=== PATIENT | male | born 1930 | race Caucasian/White ===

== ENCOUNTER 2016-11-07 09:51 | Inpatient (IN) ==
[2016-11-07 10:31] LABS: Basophils % 0.4 %; Eosinophils # 0.1 K/mcL (0.0-0.6); Eosinophils % 2.1 %; Hematocrit 31.3 % (37.5-50.1); Hemoglobin 10.1 g/dL (12.9-16.9); Immature Granulocytes % 0.4 % (0-4); Lymphocytes # 1.1 K/mcL (0.6-4.6); Lymphocytes % 22.4 %; Mean Corpuscular HGB Conc 32.3 g/dL (31.6-35.5); Mean Corpuscular Hemoglobin 29.6 pg (28.0-33.3); Mean Corpuscular Volume 91.8 fL (83.0-100.0); Monocytes # 0.3 K/mcL (0.0-1.3); Monocytes % 6.6 %; Neutrophils # 3.3 K/mcL (1.6-8.9); Platelet Count 150 K/mcL (140-400); Red Blood Count 3.41 M/mcL (4.19-5.50); Red Cell Distribution Width 13.8 % (11.5-14.5); Segmented Neutrophils % 68.1 %
[2016-11-07 10:35] LABS: INR 1.3; Prothrombin Time 14.5 Seconds (9.4-12.1)
--- NOTE | 2016-11-07 10:36 | Emergency Department Note ---
Disposition Clinical Impression: GI bleed Qualifiers: GI bleed type/associated pathology: melena Qualified Code(s): K92.1 - Melena Syncope Qualifiers: Syncope type: unspecified Qualified Code(s): R55 - Syncope and collapse Disposition: Admitted As Inpatient Condition: Good Referrals: Isaias Welsh MD [Primary Care Provider] - Forms: ED Satisfaction Letter Time of Disposition: 12:09 General Adult HPI - General Chief complaint: ED Dizziness Stated complaint: Dizzines,Fall last week Time Seen by Provider: 11/07/16 10:01 Source: patient Limitations: no limitations Nursing Notes Reviewed: Yes Vital Signs Reviewed: Yes - History of Present Illness HPI Narrative: 86-year-old male presenting to the emergency department with chief complaint of presyncope 1 week. Patient states for the last week he has been feeling unwell and has been feeling dizzy when he stands up. This is new for the patient. He has not followed with primary care physician for this complaint. Patient has significant cardiac history of 6 stents placed with the last one being in 2008. He does currently follow with cardiology. Patient also on eliquis. Patient states he did fall once approximately 4-5 days ago but this was unwitnessed. He states he has not passed out and has not hit his head. Patient also states since yesterday he has had dark coal colored stools. This is new for him and has not happened before. Patient currently in no pain. He denies chest pain but does say he does have increased shortness of breath recently. Denies nausea or vomiting. Patient is alert and oriented 3 in the room Pain Scale: 0 - Related Data Home Medications Medication Instructions Recorded Confirmed Apixaban [Eliquis] 2.5 mg PO BID 11/07/16 11/07/16 Carvedilol 12.5 mg PO BID 11/07/16 11/07/16 Cyclosporine [Restasis] 1 drop OP DAILY 11/07/16 11/07/16 Dronedarone [Multaq] 400 mg PO BIDWM 11/07/16 11/07/16 Levothyroxine Sodium [Levoxyl] 75 mcg PO DAILY 11/07/16 11/07/16 Multivit-Min/FA/Lycopen/Lutein [A 1 tab PO DAILY 11/07/16 11/07/16 Thru Z Select Multivit Tab] Simvastatin [Zocor] 10 mg PO DAILY 11/07/16 11/07/16 Allergies Allergy/AdvReac Type Severity Reaction Status Date / Time clonidine Allergy See Verified 11/07/16 09:53 Comments Erythromycin Base Allergy See Verified 11/07/16 09:53 [From Erythrocin] Comments Iodinated Contrast- Oral and Allergy See Verified 11/07/16 09:53 IV Dye Comments [Iodinated Contrast Media - IV Dye] Neomycin Allergy See Verified 11/07/16 09:53 Comments povidone-iodine Allergy See Verified 11/07/16 09:53 [From Betadine] Comments Sulfa (Sulfonamide Allergy See Verified 11/07/16 09:53 Antibiotics) Comments sulfamethoxazole Allergy See Verified 11/07/16 09:53 [From Bactrim] Comments trimethoprim [From Bactrim] Allergy See Verified 11/07/16 09:53 Comments All systems ED: reviewed and negative except as stated. Constitutional: Reports: weakness. Denies: fever, chills Eyes: Reports: as per HPI ENT ED: Reports: as per HPI Cardiovascular: Denies: chest pain, palpitations, edema Respiratory: Reports: dyspnea. Denies: cough, wheezes, hemoptysis Gastrointestinal: Reports: melena. Denies: abdominal pain, nausea, vomiting Genitourinary: Reports: as per HPI Musculoskeletal: Reports: as per HPI Integumentary: Denies: rash, abrasion, lesions Neurological: Reports: weakness. Denies: headache, numbness, paresthesias Psychiatric: Reports: as per HPI Endocrine: Reports: fatigue Hematological/Lymphatic: Reports: as per HPI Allergic/Immunologic: Reports: as per HPI Past Medical History - Past Medical History Attestation: Yes The following information was validated with the patient. Medical history: Reports: atrial fibrillation, hyperlipidemia, hypertension Surgical history: Reports: carotid endarterectomy, cataract, coronary bypass ( CABG), herniorrhaphy, knee replacement Psychiatric history: Reports: no psych history - Social History Smoking Status: Never smoker Smokeless Tobacco Status: No Alcohol use: Reports: none Drug use: Reports: none Physical Exam - General Limitations: no limitations General appearance: alert, in no apparent distress - Head Head exam: atraumatic, normocephalic, normal inspection - Eye Eye exam: Present: normal appearance, PERRL, EOMI. Absent: scleral icterus, conjunctival injection - Neck Neck exam: Present: normal inspection, full ROM - Chest Chest inspection: Present: normal inspection, symmetric chest wall rise. Absent : tenderness, rash - Respiratory Respiratory exam: Present: normal lung sounds bilaterally. Absent: respiratory distress, wheezes - Cardiovascular Cardiovascular exam: Present: regular rate, normal rhythm, normal heart sounds - Abdominal Exam Abdominal exam: Present: soft, Non-Tender. 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 Absent: fecal impaction, hemorrhoids, mass - Extremities Exam Extremities exam: Present: normal inspection, full ROM - Neurological Exam Neurological exam: Present: alert, oriented X3 - Psychiatric Psychiatric exam: Present: normal affect, normal mood - Skin Skin exam: Present: warm, intact Course Course Narrative: 86-year-old male presenting to the emergency department with presyncope. Patient has strong cardiac history along with being on eliquis. Patient also states he has coal colored stools for the past 2 days. Patient also states he did fall earlier this week. We will obtain a CT of the head, basic lab work, EKG, perform a Hemoccult test. Disposition most likely admission at this time. - Reevaluation(s) Reevaluation #1: All lab work has come back within normal limits besides a hemoglobin which is acutely dropped since 10/26. Hemoccult completed was positive. At this time we will admit the patient for GI bleed. Patient alert and oriented in the room at this time with stable vital signs. Time: 11:34 Reevaluation #2: Decision to admit the patient. Hospitalist Dr. Spears who accepts the patient. Call out to endoscopy will also be performed at this time. Time: 12:06 Reevaluation #3: Spoke with Dr. Ibarra who agrees to follow the patient while in the hospital. Patient will now be admitted to the floor. Time: 12:09 Vital Signs Temperature 0 F L 11/07/16 09:53 Pulse Rate 66 11/07/16 09:53 Respiratory Rate 20 11/07/16 09:53 Blood Pressure 107/63 11/07/16 09:53 O2 Sat by Pulse Oximetry 97 11/07/16 09:53 Temperature 0 F L 11/07/16 09:53 Pulse Rate 60 11/07/16 11:58 Respiratory Rate 18 11/07/16 11:58 Blood Pressure 97/55 11/07/16 11:58 O2 Sat by Pulse Oximetry 97 11/07/16 11:58 Oxygen Delivery Oxygen Delivery Room Air Medical Decision Making - Medical Records Medical records reviewed: Yes I reviewed the patient's medical records. - Lab Data Lab results reviewed: Yes I reviewed the patient's lab results. Result diagrams: 11/07/16 10:24 11/07/16 10:24 Lab Results 11/07/16 11/07/16 11/07/16 Range/Units 10:24 10:24 10:24 WBC 4.8 (4.3-11.1) K/mcL RBC 3.41 L (4.19-5.50) M/mcL Hgb 10.1 L (12.9-16.9) g/dL Hct 31.3 L (37.5-50.1) % MCV 91.8 (83.0-100.0) fL MCH 29.6 (28.0-33.3) pg MCHC 32.3 (31.6-35.5) g/dL RDW 13.8 (11.5-14.5) % Plt Count 150 (140-400) K/mcL MPV 10.0 (9.4-12.4) fL Immature Gran % 0.4 (0-4) % Seg Neutrophils % 68.1 % Lymphocytes % 22.4 % Monocytes % 6.6 % Eosinophils % 2.1 % Basophils % 0.4 % Neutrophils # 3.3 (1.6-8.9) K/mcL Lymphocytes # 1.1 (0.6-4.6) K/mcL Monocytes # 0.3 (0.0-1.3) K/mcL Eosinophils # 0.1 (0.0-0.6) K/mcL Basophils # 0.0 (0.0-0.2) K/mcL PT (9.4-12.1) Seconds INR APTT (26.0-36.0) Seconds Sodium 135 L (136-145) mEq/L Potassium 4.2 (3.5-4.5) mEq/L Chloride 104 (98-109) mEq/L Carbon Dioxide 25 (19-29) mEq/L BUN 22 (8-26) mg/dL Creatinine 1.34 H (0.72-1.25) mg/dL Est GFR ( Amer) > 60 (> 60) Est GFR (Non-Af Amer) 51 L (> 60) BUN/Creatinine Ratio 16 (6-26) Glucose 113 H (70-99) mg/dL Calculated Osmolality 284 (280-300) Calcium 8.9 (8.6-10.8) mg/dL Total Bilirubin 0.9 (0.2-1.2) mg/dL AST 15 (5-34) Units/L ALT 16 (0-55) Units/L Alkaline Phosphatase 63 (38-126) Units/L Troponin I 0.00 (0-0.03) ng/mL Serum Total Protein 6.3 (6.0-8.3) g/dL Albumin 3.3 L (3.5-5.0) g/dL Globulin 3.0 (2.4-3.5) g/dL Albumin/Globulin Ratio 1.1 (1.1-2.2) Urine Color (Yellow) Urine Clarity (Clear) Urine pH (5.0-8.0) pH Units Ur Specific [place] (1.010-1.025) Urine Protein (Neg-Trace) mg/dL Urine Glucose (UA) (Normal) mg/dL Urine Ketones (Negative) mg/dL Urine Blood (Negative) Urine Nitrite (Negative) Urine Bilirubin (Negative) Urine Urobilinogen (Normal) mg/dL Ur Leukocyte Esterase (Negative) Ur Culture Indicated? (NO) 11/07/16 11/07/16 Range/Units 10:24 11:16 WBC (4.3-11.1) K/mcL RBC (4.19-5.50) M/mcL Hgb (12.9-16.9) g/dL Hct (37.5-50.1) % MCV (83.0-100.0) fL MCH (28.0-33.3) pg MCHC (31.6-35.5) g/dL RDW (11.5-14.5) % Plt Count (140-400) K/mcL MPV (9.4-12.4) fL Immature Gran % (0-4) % Seg Neutrophils % % Lymphocytes % % Monocytes % % Eosinophils % % Basophils % % Neutrophils # (1.6-8.9) K/mcL Lymphocytes # (0.6-4.6) K/mcL Monocytes # (0.0-1.3) K/mcL Eosinophils # (0.0-0.6) K/mcL Basophils # (0.0-0.2) K/mcL PT 14.5 H (9.4-12.1) Seconds INR 1.3 APTT 37.8 H (26.0-36.0) Seconds Sodium (136-145) mEq/L Potassium (3.5-4.5) mEq/L Chloride (98-109) mEq/L Carbon Dioxide (19-29) mEq/L BUN (8-26) mg/dL Creatinine (0.72-1.25) mg/dL Est GFR ( Amer) (> 60) Est GFR (Non-Af Amer) (> 60) BUN/Creatinine Ratio (6-26) Glucose (70-99) mg/dL Calculated Osmolality (280-300) Calcium (8.6-10.8) mg/dL Total Bilirubin (0.2-1.2) mg/dL AST (5-34) Units/L ALT (0-55) Units/L Alkaline Phosphatase (38-126) Units/L Troponin I (0-0.03) ng/mL Serum Total Protein (6.0-8.3) g/dL Albumin (3.5-5.0) g/dL Globulin (2.4-3.5) g/dL Albumin/Globulin Ratio (1.1-2.2) Urine Color Yellow (Yellow) Urine Clarity Clear (Clear) Urine pH 6.5 (5.0-8.0) pH Units Ur Specific [place] 1.014 (1.010-1.025) Urine Protein Negative (Neg-Trace) mg/dL Urine Glucose (UA) Normal (Normal) mg/dL Urine Ketones Negative (Negative) mg/dL Urine Blood Negative (Negative) Urine Nitrite Negative (Negative) Urine Bilirubin Negative (Negative) Urine Urobilinogen Normal (Normal) mg/dL Ur Leukocyte Esterase Negative (Negative) Ur Culture Indicated? NO (NO) - Radiology Data Radiology results reviewed: Yes I reviewed the patient's radiology results. - EKG Data EKG #1 EKG attestation: Yes I reviewed and interpreted this EKG. EKG results narrative: EKG is ventricularly paced. 60 bpm. NH interval 72, QRS 190, QTC 492. No significant signs of ischemia.
[2016-11-07 10:38] LABS: Activated Partial Thrombo Time 37.8 Seconds (26.0-36.0)
[2016-11-07 10:43] LABS: Alanine Aminotransferase 16 Units/L (0-55); Albumin 3.3 g/dL (3.5-5.0); Albumin/Globulin Ratio 1.1 (1.1-2.2); Alkaline Phosphatase 63 Units/L (38-126); Aspartate Amino Transferase 15 Units/L (5-34); BUN/Creatinine Ratio 16 (6-26); Bilirubin,Total 0.9 mg/dL (0.2-1.2); Blood Urea Nitrogen 22 mg/dL (8-26); Calcium 8.9 mg/dL (8.6-10.8); Carbon Dioxide 25 mEq/L (19-29); Chloride 104 mEq/L (98-109); Glucose 113 mg/dL (70-99); Osmolality,Calculated 284 (280-300); Potassium 4.2 mEq/L (3.5-4.5); Sodium 135 mEq/L (136-145); Total Protein 6.3 g/dL (6.0-8.3); eGFR For African Americans > 60 (> 60); eGFR For Non-African Americans 51 (> 60)
[2016-11-07 11:22] LABS: Bilirubin,Urine Negative (Negative); Blood,Urine Negative (Negative); Clarity,Urine Clear (Clear); Color,Urine Yellow (Yellow); Glucose,Urine (UA) Normal (Normal); Ketones,Urine Negative (Negative); Leukocyte Esterase,Urine Negative (Negative); Nitrite,Urine Negative (Negative); PH,Urine 6.5 pH Units (5.0-8.0); Protein,Urine Negative (Neg-Trace); Specific Gravity,Urine 1.014 (1.010-1.025); Urobilinogen,Urine Normal (Normal)
[2016-11-07] MEDS ORDERED: Pantoprazole 80 MG in 0.9 % Sodium Chloride 50 ML IVPB ONE (11:44)
--- NOTE | 2016-11-07 11:44 | Emergency Department Note ---
START Narrative - START START: I examined this patient and my medical decision-making was reviewed with the Resident Physician. I agree with the documented findings, disposition and treatment plan as described except to the extent set forth below. 86-year-old male had presented to the ER for dizziness. Patient was found to be anemic with a most likely upper GI bleed. Hemoglobin was down to 10. Was a positive Hemoccult test in the ER. Patient denies abdominal pain. He is on Eloquis. will need to consult with GI and Cards. he states he has a colonoscopy around age 52 and states it was normal. Has not had any intervention since. He states his stools are been dark in color. Denies any bright red blood at this time. No abdominal pain. No chest pain or shortness of breath.
[2016-11-07] MEDS: Pantoprazole 40 MG in 0.9 % Sodium Chloride Mini Bag 100 ML IVC SCH ×3 (12:11→23:12)
[2016-11-07] MEDS: 0.9 % Sodium Chloride 1,000 ML IVC SCH (12:11)
[2016-11-07] MEDS ORDERED: Ondansetron 4 MG/2 ML VIAL IVP PRN (12:21)
[2016-11-07] MEDS ORDERED: Acetaminophen 325 MG TABLET PO PRN (12:21)
[2016-11-07] MEDS ORDERED: *HR* Morphine 2 MG/ML SYRINGE IVP PRN (12:21)
[2016-11-07] MEDS ORDERED: Naloxone 0.4 MG/ML INJ IVP PRN (12:21)
--- NOTE | 2016-11-07 12:26 | Internal Med History&Physical ---
Date of Encounter: 11/07/16 Time of Encounter: 12:24 Assessment and Plan (1) Anemia Current visit: Yes Status: Acute Near syncope due to Acute blood loss anemia/symptomatic anemia likely secondary to upper GI bleed, exacerbated by Eliquis Denies taking any other blood thinner such as NSAIDs Continue Protonix IV, monitor CBC and consider transfusions, hold Eliquis GI consulted by the ER IV fluids, nothing by mouth after midnight Protonix for GI prophylaxis and sequential compression devices for DVT prophylaxis. The patient will be admitted as inpatient, expected to stay more than 2 midnights. Full code. Time spent on this admission 40 minutes High risk of falling Qualifiers: Iron deficiency anemia type: chronic blood loss Qualified Code(s): D50.0 - Iron deficiency anemia secondary to blood loss (chronic) (2) CAD (coronary artery disease) Current visit: Yes Status: Acute , Continue multaq Continue carvedilol Obtain records from Dr. Gutierrez to confirm whether the patient has atrial fibrillation Qualifiers: Coronary Disease-Associated Artery/Lesion type: bypass graft, autologous artery Associated angina: without angina Qualified Code(s): I25.810 - Atherosclerosis of coronary artery bypass graft(s) without angina pectoris (3) CKD (chronic kidney disease) stage 3, GFR 30-59 ml/min Current visit: Yes Status: Acute Stable, continue IV fluids (4) HTN (hypertension) Current visit: Yes Status: Acute Stable Qualifiers: Hypertension type: essential hypertension Qualified Code(s): I10 - Essential (primary) hypertension (5) Prostate cancer Current visit: Yes Status: Acute (6) GI bleed Current visit: Yes Status: Acute Qualifiers: GI bleed type/associated pathology: melena Qualified Code(s): K92.1 - Melena Internal Medicine - H&P: HPI Chief complaint: Weakness Admitted From: Emergency Dept History of present illness: Mr. Carbajal is a 86 year old male with a past medical history of CAD status post CABG, pacemaker, chronic kidney disease is stage III, possibly atrial fibrillation currently on Eliquis, who comes complaining of severe weakness for the past week with near syncopal episodes inconstant dizziness especially when standing up. His hemoglobin has dropped from 12.9 down to 10.9, INR is 1.3. The patient has been complaining of dark stools for the past 2 days sodium is 135 creatinine is 1.34 at baseline. Hemoccult was positive. He felt 5 days ago but did not heed his head, CT scan of the head does not show any intracranial hemorrhage. Chest x-ray does not show any abnormalities. The ER physician contacted the GI service and started the patient on a Protonix drip. He denies any chest pain or other complaint. 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 [employer] Past Med Surg Social Fam HX - Past Medical History Medical history: atrial fibrillation (Possibly atrial fibrillation on eliquis), coronary artery disease (Status post 6 stents and CABG), hyperlipidemia, hypertension, other (Chronic kidney disease stage III, UTI with a Staphylococcus and enterococcus, hyperlipidemia, prostate cancer) Psychiatric history: no psych history - Past Surgical History Surgical History: carotid endarterectomy, cataract, coronary bypass (CABG), herniorrhaphy, knee replacement, pacemaker/AICD, other (Cardiac catheterization the last one in 2008, prostate surgery, right eye surgery) - Social History Smoking Status: Never smoker Smokeless Tobacco Status: No Alcohol use: none Drug use: none - Additional Family History Additional family history: Mother with heart disease Internal Medicine - H&P: Meds Apixaban [Eliquis] 2.5 mg PO BID 11/07/16 [History] Carvedilol 12.5 mg PO BID 11/07/16 [History] Cyclosporine [Restasis] 1 drop OP DAILY 11/07/16 [History] Dronedarone [Multaq] 400 mg PO BIDWM 11/07/16 [History] Levothyroxine Sodium [Levoxyl] 75 mcg PO DAILY 11/07/16 [History] Multivit-Min/FA/Lycopen/Lutein [A Thru Z Select Multivit Tab] 1 tab PO DAILY 03/25 [History] Simvastatin [Zocor] 10 mg PO DAILY 11/07/16 [History] 3 Allergy/AdvReac Type Severity Reaction Status Date / Time clonidine Allergy See Verified 11/07/16 09:53 Comments Erythromycin Base Allergy See Verified 11/07/16 09:53 [From Erythrocin] Comments Iodinated Contrast- Oral and Allergy See Verified 11/07/16 09:53 IV Dye Comments [Iodinated Contrast Media - IV Dye] Neomycin Allergy See Verified 11/07/16 09:53 Comments povidone-iodine Allergy See Verified 11/07/16 09:53 [From Betadine] Comments Sulfa (Sulfonamide Allergy See Verified 11/07/16 09:53 Antibiotics) Comments sulfamethoxazole Allergy See Verified 11/07/16 09:53 [From Bactrim] Comments trimethoprim [From Bactrim] Allergy See Verified 11/07/16 09:53 Comments All Systems PM: A 10-system review of systems was performed and is negative for pertinent findings except as documented above in the HPI. Review of systems: Mentions of breath, no abdominal pain, no dysuria. Other systems out of the 10 reviewed were negative. Complains of generalized weakness - Constitutional Vitals: Temp Pulse Resp BP Pulse Ox 0 F L 60 18 97/55 97 11/07/16 09:53 11/07/16 11:58 11/07/16 11:58 11/07/16 11:58 11/07/16 11:58 General appearance: Present: A&O X 3 (Hard of hearing) - Head Head exam: Present: atraumatic, normocephalic - Eye Eye exam: Present: PERRL, conjuntiva pink, sclera anicteric Pupils: Present: PERRL - Neck Neck exam general surgery: Present: supple, trachea midline. Absent: lymphadenopathy - Respiratory Respiratory exam: Present: CTAB. Absent: accessory muscle use, rales, rhonchi, wheezes - Cardiovascular Cardiovascular exam: Present: RRR, +S1, +S2. Absent: diastolic murmur, gallop, rubs, systolic murmur - GI/Abdominal GI/Abdominal exam: Present: normal bowel sounds, soft, no peritoneal signs. Absent: distended, tenderness - Extremities Exam Extremities exam: Present: warm, radial pulses palpable and symmetrical. Absent : calf tenderness, cyanotic, pedal edema - Neurological Exam Neurological exam: Present: CN II-XII intact, oriented X3, no focal deficits. Absent: pronater drift, facial droop, speech deficit - Skin Skin exam: Present: dry, intact Internal Med - H&P Results - Labs CBC & Chem 7: 11/07/16 10:24 11/07/16 10:24 Labs: Short CBC 11/07/16 Range/Units 10:24 WBC 4.8 (4.3-11.1) K/mcL Hgb 10.1 L (12.9-16.9) g/dL Hct 31.3 L (37.5-50.1) % Plt Count 150 (140-400) K/mcL Neutrophils # 3.3 (1.6-8.9) K/mcL BMP 11/07/16 10:24 Sodium 135 L Potassium 4.2 Chloride 104 Carbon Dioxide 25 BUN 22 Creatinine 1.34 H Glucose 113 H Calcium 8.9 Cardiac Enzymes 11/07/16 Range/Units 10:24 Troponin I 0.00 (0-0.03) ng/mL Liver Function 11/07/16 Range/Units 10:24 Total Bilirubin 0.9 (0.2-1.2) mg/dL AST 15 (5-34) Units/L ALT 16 (0-55) Units/L Alkaline Phosphatase 63 (38-126) Units/L Albumin 3.3 L (3.5-5.0) g/dL Urine 11/07/16 Range/Units 11:16 Urine Color Yellow (Yellow) Urine Clarity Clear (Clear) Urine pH 6.5 (5.0-8.0) pH Units Ur Specific [place] 1.014 (1.010-1.025) Urine Protein Negative (Neg-Trace) mg/dL Urine Glucose (UA) Normal (Normal) mg/dL - Impressions ITS Impressions Head CT 11/07/16 10:19 IMPRESSION: No acute intracranial abnormality. D/ / Renae Ngo MD / Renae Ngo MD Interpreting Provider: Renae Ngo MD Chest X-Ray 11/07/16 10:20 IMPRESSION: 1. No active pulmonary disease. 2. Stable cardiomegaly without overt failure. D/ / Aftab Gamez MD / Aftab Gamez MD Interpreting Provider: Aftab Gamez MD
--- NOTE | 2016-11-07 17:42 | Electrocardiograph Report ---
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
[2016-11-07 21:31] LABS: Hematocrit 30.7 % (37.5-50.1); Mean Corpuscular HGB Conc 32.6 g/dL (31.6-35.5); Mean Corpuscular Hemoglobin 29.9 pg (28.0-33.3); Mean Corpuscular Volume 91.9 fL (83.0-100.0); Mean Platelet Volume 10.2 fL (9.4-12.4); Platelet Count 158 K/mcL (140-400); Red Blood Count 3.34 M/mcL (4.19-5.50)
[2016-11-08] MEDS: Pantoprazole 40 MG in 0.9 % Sodium Chloride Mini Bag 100 ML IVC SCH ×2 (00:19→08:24)
[2016-11-08] MEDS: 0.9 % Sodium Chloride 1,000 ML IVC SCH (03:00)
[2016-11-08 04:59] LABS: Hemoglobin 9.4 g/dL (12.9-16.9); Mean Corpuscular HGB Conc 32.4 g/dL (31.6-35.5); Mean Corpuscular Hemoglobin 29.9 pg (28.0-33.3); Mean Corpuscular Volume 92.4 fL (83.0-100.0); Mean Platelet Volume 10.9 fL (9.4-12.4); Platelet Count 148 K/mcL (140-400); Red Blood Count 3.14 M/mcL (4.19-5.50)
[2016-11-08 05:18] LABS: BUN/Creatinine Ratio 14 (6-26); Blood Urea Nitrogen 17 mg/dL (8-26); Calcium 8.6 mg/dL (8.6-10.8); Carbon Dioxide 24 mEq/L (19-29); Chloride 109 mEq/L (98-109); Glucose 94 mg/dL (70-99); Osmolality,Calculated 289 (280-300); Potassium 4.3 mEq/L (3.5-4.5); Sodium 139 mEq/L (136-145); eGFR For African Americans > 60 (> 60); eGFR For Non-African Americans 55 (> 60)
--- NOTE | 2016-11-08 08:20 | Internal Med Progress Note ---
Date of Encounter: 11/08/16 Time of Encounter: 08:18 - Assessment and plan (1) Anemia Current Visit: Yes Status: Acute Assessment and plan: Near syncope due to Acute blood loss anemia/symptomatic anemia likely secondary to upper GI bleed, exacerbated by Eliquis Denies taking any other blood thinner such as NSAIDs Continue Protonix IV, monitor CBC and consider transfusions, hold Eliquis GI consulted IV fluids, nothing by mouth for possible endoscopy Qualifiers: Iron deficiency anemia type: chronic blood loss Qualified Code(s): D50.0 - Iron deficiency anemia secondary to blood loss (chronic) (2) CAD (coronary artery disease) Current Visit: Yes Status: Acute Assessment and plan: Continue multaq Continue carvedilol RN instructed to obtain records from Dr. 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 [employer] Qualifiers: Coronary Disease-Associated Artery/Lesion type: bypass graft, autologous artery Associated angina: without angina Qualified Code(s): I25.810 - Atherosclerosis of coronary artery bypass graft(s) without angina pectoris (3) CKD (chronic kidney disease) stage 3, GFR 30-59 ml/min Current Visit: Yes Status: Acute Assessment and plan: Stable, continue fluids (4) HTN (hypertension) Current Visit: Yes Status: Acute Qualifiers: Hypertension type: essential hypertension Qualified Code(s): I10 - Essential (primary) hypertension (5) Prostate cancer Current Visit: Yes Status: Acute (6) GI bleed Current Visit: Yes Status: Acute Qualifiers: GI bleed type/associated pathology: melena Qualified Code(s): K92.1 - Melena - Subjective Interval history: Denies any more bowel movements since yesterday, no dark stools. Denies any chest pressures or breath, no abdominal pain, no dysuria, no fevers - Constitutional Vitals: Temp Pulse Resp BP Pulse Ox 97.8 F 66 16 164/73 99 11/08/16 07:08 11/08/16 07:08 11/08/16 07:08 11/08/16 07:08 11/08/16 07:08 General appearance: Present: A&O X 3 (Hard of hearing) - Head Head exam: Present: atraumatic, normocephalic - Eye Eye exam: Present: PERRL, conjuntiva pink, sclera anicteric Pupils: Present: PERRL - Neck Neck exam general surgery: Present: supple, trachea midline. Absent: lymphadenopathy - Respiratory Respiratory exam: Present: CTAB. Absent: accessory muscle use, rales, rhonchi, wheezes - Cardiovascular Cardiovascular exam: Present: RRR, +S1, +S2. Absent: diastolic murmur, gallop, rubs, systolic murmur - GI/Abdominal GI/Abdominal exam: Present: normal bowel sounds, soft, no peritoneal signs. Absent: distended, tenderness - Extremities Exam Extremities exam: Present: warm, radial pulses palpable and symmetrical. Absent : calf tenderness, cyanotic, pedal edema - Neurological Exam Neurological exam: Present: CN II-XII intact, oriented X3, no focal deficits. Absent: pronater drift, facial droop, speech deficit - Skin Skin exam: Present: dry, intact Internal Medicine: Result - Labs CBC & Chem 7: 11/08/16 04:30 11/08/16 04:30 Labs: Short CBC 11/07/16 11/08/16 Range/Units 21:24 04:30 WBC 5.0 4.4 (4.3-11.1) K/mcL Hgb 10.0 L 9.4 L (12.9-16.9) g/dL Hct 30.7 L 29.0 L (37.5-50.1) % Plt Count 158 148 (140-400) K/mcL BMP 11/08/16 04:30 Sodium 139 Potassium 4.3 Chloride 109 Carbon Dioxide 24 BUN 17 Creatinine 1.25 Glucose 94 Calcium 8.6 - ABG Interpretation ABG results: PT/INR, D-dimer PT 14.5 Seconds (9.4-12.1) H 11/07/16 10:24 Consult Discharge Plan - Plan Referrals: Isaias Welsh MD [Primary Care Provider] -
[2016-11-08] MEDS ORDERED: *HR* FentaNYL (PF) 100 MCG/2 ML VIAL ONE (11:43)
[2016-11-08] MEDS ORDERED: *HR* Midazolam HCl 5 MG/5 ML VIAL IVP ONE (11:43)
--- NOTE | 2016-11-08 12:18 | Gastroenterology Consult Note ---
<Dianne Agosto - Last Filed: 11/08/16 12:06> Date of Encounter: 11/08/16 Time of Encounter: 11:00 - Assessment and plan (1) Acute upper GI bleed Current Visit: Yes Status: Acute Assessment and plan: Pt presents after fall at home. He has dark stools and decreasing HGB from 12.9 to 9.4. He is on eliquis. He has a pacemaker. He needs EGD. - Time Spent With Patient Total time spent is greater than 50% in coordination of care (as documented) at patient's floor/unit and/or counseling patient: GI History of Present Illness - Data of Consult Patient: new to practice Consult date: 11/08/16 Requesting Physician: Tunde Lopez - Consult Narrative Reason for consult: GI bleed History of present illness: Mr. Carbajal is a 86 year old male who presents following a fall at home. He has a pmhx of CAD, HTN, prostated CA, CKD. He has Past surgical history of CABG in 1987, hernia repair, and pacemaker 02/21. CT head was negative and CXR showed stable cardiomegaly without failure. Labs showed Hgb 12.9 and has decreased to 9.4. Inr 1.3, Gluc 94, ALB 3.3, AST 15, ALT 16 platelets 148. He reports feeling weak and dizzy for the past month. He has had increased fatigue and orthostatic hypotension. He reports an episode of black tarry stool yesterday with some dark red stool. He denies dysphagia, abdominal pain or diarrhea. He reports occasional constipation. He is on eliquis and multaq at home, and followed by Dr Gutierrez at [facility]. He denies any smoking, drugs or ETOH. Colonoscopy: ~10 years ago ([facility]) EGD: denies NSAIDS: denies ASA: denies Anticougulants: eliquis Past Med Surg Social Fam HX - Past Medical History Medical history: atrial fibrillation, coronary artery disease, hyperlipidemia, hypertension, other Psychiatric history: no psych history - Past Surgical History Surgical History: carotid endarterectomy, cataract, coronary bypass (CABG), herniorrhaphy, knee replacement, pacemaker/AICD, other - Social History Smoking Status: Never smoker Smokeless Tobacco Status: No Alcohol use: none Drug use: none - Family History Mother Living Status: Age at : 83 Cause of : Heart disease Hx Family Cardiac Disorders: Yes (Heart disease) Review of Systems: GI: as per [place] GENERAL: denies fever, or chills EYES: denies yellow discoloration ENT: denies pain with swallowing or difficulty swallowing CARDIO: denies chest pain, palpitations RESP: mild Shortness of breath with exertion : denies change in color of urine NEURO: increased dizziness any weakness HEME: Denies any bruising MS: denies joint pain, joint swelling or back pain. DERM: denies rash or itching PSYCH: Denies history of anxiety or depression - Constitutional Vitals: Temp Pulse Resp BP Pulse Ox 98 F 59 16 184/90 98 11/08/16 11:57 11/08/16 11:57 11/08/16 11:57 11/08/16 11:57 11/08/16 11:57 Exam: CONSTITUTIONAL:~alert, no acute distress.~HEAD:~normocephalic.~EYES:~no jaundice.~NECK:~no obvious swelling.~HEART:~regular rate and rhythm, no murmurs , implanted pacemaker noted left upper chest.~LUNGS:~bilateral good air entry.~ ABDOMEN:~non distended, soft, non tander, no masses pulpable, no organomegaly.~ RECTAL EXAM:~Deferred.~EXTREMITIES:~no clubbing, cyanosis or edema.~SKIN:~mild pallor noted, no stigmata of chronic liver disease.~NEUROLOGIC:~no obvious focal defect.~~~~ Results - Labs CBC & Chem 7: 11/08/16 04:30 11/08/16 04:30 Labs: Last Result Calcium 8.6 mg/dL (8.6-10.8) 11/08/16 04:30 Troponin I 0.00 ng/mL (0-0.03) 11/07/16 10:24 Entire Visit Hgb 9.4 g/dL (12.9-16.9) L 11/08/16 04:30 Hct 29.0 % (37.5-50.1) L 11/08/16 04:30 PT 14.5 Seconds (9.4-12.1) H 11/07/16 10:24 Total Bilirubin 0.9 mg/dL (0.2-1.2) 11/07/16 10:24 AST 15 Units/L (5-34) 11/07/16 10:24 ALT 16 Units/L (0-55) 11/07/16 10:24 - ABG ABG results: PT/INR, D-dimer PT 14.5 Seconds (9.4-12.1) H 11/07/16 10:24 Consult Discharge Plan - Plan Instructions: Omeprazole (By mouth) Referrals: Isaias Welsh MD [Primary Care Provider] - 11/21/16 2:30 pm <Dilma Ibarra - Last Filed: 11/08/16 17:56> Date of Encounter: 11/08/16 Time of Encounter: 12:30 - Time Spent With Patient Total time spent is greater than 50% in coordination of care (as documented) at patient's floor/unit and/or counseling patient: GI History of Present Illness - Data of Consult Requesting Physician: Tunde Lopez - Consult Narrative History of present illness: Mr. Carbajal is a 86 year old male - Constitutional Vitals: Temp Pulse Resp BP Pulse Ox 97.8 F 66 18 148/70 98 11/08/16 15:54 11/08/16 15:54 11/08/16 15:54 11/08/16 15:54 11/08/16 15:54 Results - Labs CBC & Chem 7: 11/08/16 04:30 11/08/16 04:30 Labs: Last Result Calcium 8.6 mg/dL (8.6-10.8) 11/08/16 04:30 Troponin I 0.00 ng/mL (0-0.03) 11/07/16 10:24 Entire Visit Hgb 9.4 g/dL (12.9-16.9) L 11/08/16 04:30 Hct 29.0 % (37.5-50.1) L 11/08/16 04:30 PT 14.5 Seconds (9.4-12.1) H 11/07/16 10:24 Total Bilirubin 0.9 mg/dL (0.2-1.2) 11/07/16 10:24 AST 15 Units/L (5-34) 11/07/16 10:24 ALT 16 Units/L (0-55) 11/07/16 10:24 - ABG ABG results: PT/INR, D-dimer PT 14.5 Seconds (9.4-12.1) H 11/07/16 10:24 - Attending Attestation I examined this patient and my medical decision-making was reviewed with the Resident Physician. I agree with the documented findings, disposition and treatment plan as described except to the extent set forth below. Patient with anemia and dark stool rule out upper GI sources for bleeding. Recommendation EGD today. Follow H&H.
[2016-11-09 05:40] LABS: Hemoglobin 9.8 g/dL (12.9-16.9); Mean Corpuscular HGB Conc 32.7 g/dL (31.6-35.5); Mean Corpuscular Hemoglobin 30.2 pg (28.0-33.3); Mean Corpuscular Volume 92.6 fL (83.0-100.0); Mean Platelet Volume 10.5 fL (9.4-12.4); Platelet Count 145 K/mcL (140-400); Red Blood Count 3.24 M/mcL (4.19-5.50)
[2016-11-09 05:51] LABS: BUN/Creatinine Ratio 15 (6-26); Blood Urea Nitrogen 18 mg/dL (8-26); Calcium 8.7 mg/dL (8.6-10.8); Carbon Dioxide 24 mEq/L (19-29); Chloride 107 mEq/L (98-109); Glucose 95 mg/dL (70-99); Osmolality,Calculated 288 (280-300); Potassium 4.3 mEq/L (3.5-4.5); Sodium 138 mEq/L (136-145); eGFR For African Americans > 60 (> 60); eGFR For Non-African Americans 56 (> 60)
[2016-11-09] MEDS: 0.9 % Sodium Chloride 1,000 ML IVC SCH (07:08)
[2016-11-09] MEDS: Pantoprazole 40 MG in 0.9 % Sodium Chloride Mini Bag 100 ML IVC SCH (07:08)
--- NOTE | 2016-11-09 07:37 | Discharge Summary ---
Date of Encounter: 11/09/16 Time of Encounter: 07:34 - Discharge Diagnosis (1) Anemia Priority: Primary Status: Acute Comments: Near syncope due to Acute blood loss anemia/symptomatic anemia likely secondary to upper GI bleed, exacerbated by Eliquis Qualifiers: Iron deficiency anemia type: chronic blood loss Qualified Code(s): D50.0 - Iron deficiency anemia secondary to blood loss (chronic) (2) CAD (coronary artery disease) Priority: Secondary Status: Acute Qualifiers: Coronary Disease-Associated Artery/Lesion type: bypass graft, autologous artery Associated angina: without angina Qualified Code(s): I25.810 - Atherosclerosis of coronary artery bypass graft(s) without angina pectoris (3) CKD (chronic kidney disease) stage 3, GFR 30-59 ml/min Priority: Secondary Status: Acute (4) HTN (hypertension) Priority: Secondary Status: Acute Qualifiers: Hypertension type: essential hypertension Qualified Code(s): I10 - Essential (primary) hypertension (5) Prostate cancer Priority: Secondary Status: Acute (6) GI bleed Priority: Primary Status: Acute Qualifiers: GI bleed type/associated pathology: melena Qualified Code(s): K92.1 - Melena - Discharge Medications Prescriptions: Omeprazole [PriLOSEC] 40 mg PO BIDAC #60 capsule.dr Garcia Medications: Carvedilol 12.5 mg PO BID 11/07/16 [History] Cyclosporine [Restasis] 1 drop OP DAILY 11/07/16 [History] Dronedarone [Multaq] 400 mg PO BIDWM 11/07/16 [History] Levothyroxine Sodium [Levoxyl] 75 mcg PO DAILY 11/07/16 [History] Multivit-Min/FA/Lycopen/Lutein [A Thru Z Select Multivit Tab] 1 tab PO DAILY 03/25 [History] Simvastatin [Zocor] 10 mg PO DAILY 11/07/16 [History] Omeprazole [PriLOSEC] 40 mg PO BIDAC #60 capsule. 11/09/16 [Rx] Allergies/Adverse Reactions: 3 Allergy/AdvReac Type Severity Reaction Status Date / Time clonidine Allergy See Verified 11/07/16 09:53 Comments Erythromycin Base Allergy See Verified 11/07/16 09:53 [From Erythrocin] Comments Iodinated Contrast- Oral and Allergy See Verified 11/07/16 09:53 IV Dye Comments [Iodinated Contrast Media - IV Dye] Neomycin Allergy See Verified 11/07/16 09:53 Comments povidone-iodine Allergy See Verified 11/07/16 09:53 [From Betadine] Comments Sulfa (Sulfonamide Allergy See Verified 11/07/16 09:53 Antibiotics) Comments sulfamethoxazole Allergy See Verified 11/07/16 09:53 [From Bactrim] Comments trimethoprim [From Bactrim] Allergy See Verified 11/07/16 09:53 Comments Date of admission: 11/07/16 12:38 Primary care physician: Isaias Welsh MD - Patient Status Disposition: Home, Self-Care Condition: Good Overall status at discharge: patient is back to baseline - Discharge Instructions Instructions: Omeprazole (By mouth) Follow Up With: Isaias Welsh MD [Primary Care Provider] - 11/21/16 2:30 pm Additional Instructions: Follow-up with her Medicare physician within the next 7 days. Follow-up with cardiology within the next 2-3 weeks. Hold Eliquis until appointment with cardiology. Continue omeprazole 40 mg twice a day. Avoid anti-inflammatory medications/NSAIDs. Follow report of biopsy with GI within the next 2 weeks - Diet and Activity Activity: increase activity as tolerated Diet: low fat, low cholesterol Hospital course: Mr. Carbajal is a 86 year old male with a past medical history of aortic stenosis, systolic CHF with an ejection fraction between 30-35%, apparently the patient has a pacemaker and not a defibrillator, uses Multaq and Eliquis for atrial fibrillation, history of ischemic cardiomyopathy, peripheral vascular disease, mitral regurgitation, tricuspid regurgitation, nonsustained SVT, atrial fibrillation on eliquis, coronary artery disease (Status post 6 stents and CABG), hyperlipidemia, hypertension, other (Chronic kidney disease stage III , UTI with a Staphylococcus and enterococcus, hyperlipidemia, prostate cancer, who came complaining of severe weakness for the past week with near syncopal episodes with constant dizziness especially when standing up. His hemoglobin dropped from 12.9 down to 10.9 and down to 9.8 during his hospitalization, INR was 1.3. The patient was complaining of dark stools for the past 2 days. Hemoccult was positive. He fell 5 days ago but did not heed his head, CT scan of the head does not show any intracranial hemorrhage. Chest x-ray does not show any abnormalities. The ER physician contacted the GI service and started the patient on a Protonix drip. The patient had an endoscopy that showed a medium-sized hiatal hernia, and one nonbleeding duodenal ulcer. The patient was switched to omeprazole twice a day , Eliquis was held. 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 - Time Spent with Patient Total time spent providing and/or coordinating discharge services: Greater than 30 minutes (40 min) - Constitutional Vitals: Temp Pulse Resp BP Pulse Ox 98.0 F 71 12 119/70 95 11/09/16 03:40 11/09/16 03:40 11/09/16 03:40 11/09/16 03:40 11/09/16 03:40 General appearance: Present: A&O X 3 (Hard of hearing) - Head Head exam: Present: atraumatic, normocephalic - Eye Eye exam: Present: PERRL, conjuntiva pink, sclera anicteric Pupils: Present: PERRL - Neck Neck exam general surgery: Present: supple, trachea midline. Absent: lymphadenopathy - Respiratory Respiratory exam: Present: CTAB. Absent: accessory muscle use, rales, rhonchi, wheezes - Cardiovascular Cardiovascular exam: Present: RRR, +S1, +S2, systolic murmur (Systolic murmur radiating to the aortic area 2 out of 6). Absent: diastolic murmur, gallop, rubs - GI/Abdominal GI/Abdominal exam: Present: normal bowel sounds, soft, no peritoneal signs. Absent: distended, tenderness - Extremities Exam Extremities exam: Present: warm, radial pulses palpable and symmetrical. Absent : calf tenderness, cyanotic, pedal edema - Neurological Exam Neurological exam: Present: CN II-XII intact, oriented X3, no focal deficits. Absent: pronater drift, facial droop, speech deficit - Skin Skin exam: Present: dry, intact - VTE Documentation of Mechanical Device: Intermittent pneumatic compression device
[2016-11-09 07:40] VITALS: BP 171/64
== END 2016-11-09 10:25 | disposition home or self-care (01) | DRG 378 ==
LOC: EMEROO 09:51 → 3BNU 09:51 → SUATTDRO 12:38 → 3BNU 13:07
PROVIDERS: ADMIT Internal Medicine; ATTEND Internal Medicine
PROC: ENDOEBX (2016-11-08 11:30)

== ENCOUNTER 2018-01-02 08:04 | Observation (INO) ==
[2018-01-02] MEDS ORDERED: Ondansetron 4 MG/2 ML VIAL IVP ONE (08:16)
[2018-01-02] MEDS ORDERED: 0.9 % Sodium Chloride 500 ML IVC ONE (08:18)
[2018-01-02 08:45] LABS: Basophils % 0.4 %; Eosinophils # 0.1 K/mcL (0.0-0.6); Eosinophils % 1.4 %; Hematocrit 35.3 % (37.5-50.1); Hemoglobin 11.6 g/dL (12.9-16.9); Immature Granulocytes % 0.4 % (0-4); Lymphocytes # 1.5 K/mcL (0.6-4.6); Lymphocytes % 26.3 %; Mean Corpuscular HGB Conc 32.9 g/dL (31.6-35.5); Mean Corpuscular Hemoglobin 29.7 pg (28.0-33.3); Mean Corpuscular Volume 90.5 fL (83.0-100.0); Mean Platelet Volume 10.9 fL (9.4-12.4); Monocytes # 0.6 K/mcL (0.0-1.3); Monocytes % 10.7 %; Neutrophils # 3.5 K/mcL (1.6-8.9); Platelet Count 142 K/mcL (140-400); Red Cell Distribution Width 13.4 % (11.5-14.5); Segmented Neutrophils % 60.8 %
[2018-01-02 09:02] LABS: Troponin I 0.03 ng/mL (< 0.04)
[2018-01-02 09:05] LABS: Albumin 4.2 g/dL (3.5-5.7); Albumin/Globulin Ratio 1.6 (1.1-2.2); Bilirubin,Direct 0.1 mg/dL (0.0-0.2); Bilirubin,Indirect 0.6 mg/dL (0.0-1.2); Bilirubin,Total 0.7 mg/dL (0.3-1.0); Calcium 8.9 mg/dL (8.6-10.3); Globulin 2.6 g/dL (2.4-3.5); Magnesium 2.3 mg/dL (1.6-2.6); Total Protein 6.8 g/dL (6.4-8.9)
--- NOTE | 2018-01-02 09:07 | Emergency Department Note ---
Disposition Clinical Impression: GIL (acute kidney injury) UTI (urinary tract infection) Qualifiers: Urinary tract infection type: site unspecified Hematuria presence: without hematuria Qualified Code(s): N39.0 - Urinary tract infection, site not specified Disposition: Admitted As Inpatient Condition: Good Forms: ED Satisfaction Letter Nausea/Vomiting/Diarrhea HPI - General Chief complaint: ED Nausea/Vomiting/Diarrhea Stated complaint: Nausea Time Seen by Provider: 01/02/18 08:15 Source: patient Mode of arrival: ambulatory Limitations: no limitations Nursing Notes Reviewed: Yes Vital Signs Reviewed: Yes - History of Present Illness HPI Narrative: Patient presenting to the emergency department for several days of feeling unwell. Patient he states he has been tired and fatigued and has a significant cardiac history including multiple bypasses. He does have previous endarte rectomy as well. He has had overall decreased appetite without abdominal pain. No chest pain or shortness of breath. No pain in the extremities. He did have a sore throat and some mucus production. He is able to give me any further delineation as to possible underlying cause. - Related Data Home Medications Medication Instructions Recorded Confirmed Carvedilol 12.5 mg PO BID 11/07/16 11/07/16 Cyclosporine [Restasis] 1 drop OP DAILY 11/07/16 11/07/16 Dronedarone [Multaq] 400 mg PO BIDWM 11/07/16 11/07/16 Levothyroxine Sodium [Levoxyl] 75 mcg PO DAILY 11/07/16 11/07/16 Multivit-Min/FA/Lycopen/Lutein [A 1 tab PO DAILY 11/07/16 11/07/16 Thru Z Select Multivit Tab] Simvastatin [Zocor] 10 mg PO DAILY 11/07/16 11/07/16 Previous Rx's Medication Instructions Recorded Omeprazole [PriLOSEC] 40 mg PO BIDAC #60 capsule. 11/09/16 Pimecrolimus [Elidel] 30 gm TP BID #1 cream..g. 04/24/17 predniSONE [PredniSONE] 40 mg PO DAILY 7 Days #14 tablet 04/24/17 Allergies Allergy/AdvReac Type Severity Reaction Status Date / Time clonidine Allergy See Verified 11/07/16 09:53 Comments Erythromycin Base Allergy See Verified 11/07/16 09:53 [From Erythrocin] Comments Iodinated Contrast- Oral and Allergy See Verified 11/07/16 09:53 IV Dye Comments [Iodinated Contrast Media - IV Dye] Neomycin Allergy See Verified 11/07/16 09:53 Comments povidone-iodine Allergy See Verified 11/07/16 09:53 [From Betadine] Comments Sulfa (Sulfonamide Allergy See Verified 11/07/16 09:53 Antibiotics) Comments sulfamethoxazole Allergy See Verified 11/07/16 09:53 [From Bactrim] Comments trimethoprim [From Bactrim] Allergy See Verified 11/07/16 09:53 Comments Review of Systems: CONSTITUTIONAL: Generalized weakness and fatigue No weight loss, fever, chills HEENT: Eyes: No visual changes. Ears, Nose, Throat: No hearing loss, difficulty talking or unable to swallow. SKIN: No rash or itching. CARDIOVASCULAR: No chest pain, chest pressure or chest discomfort. No palpitations or edema. RESPIRATORY: No shortness of breath, cough or sputum. GASTROINTESTINAL: No anorexia, nausea, vomiting or diarrhea. No abdominal pain or blood. GENITOURINARY: No burning on urination or hematuria. NEUROLOGICAL: Lightheadedness with standing No headache, dizziness, syncope, paralysis, ataxia, numbness or tingling in the extremities. No change in bowel or bladder control. MUSCULOSKELETAL: No muscle pain, back pain, joint pain or stiffness. Past Medical History - Past Medical History Medical history: Reports: atrial fibrillation, coronary artery disease, hyperlipidemia, hypertension, other Surgical history: Reports: carotid endarterectomy, cataract, coronary bypass (CABG), herniorrhaphy, knee replacement, pacemaker/AICD, other Psychiatric history: Reports: no psych history - Social History Smoking Status: Never smoker Smokeless Tobacco Status: No Alcohol use: Reports: none Drug use: Reports: none Physical Exam General: Well appearing, nontoxic, no acute distress Head: Normocephalic Atraumatic Eyes: PERRL, EOMI ENT: Airway patent, no stridor Neck: supple, no meningismus Chest: Lungs clear to auscultation bilateral Cardiac: Regular rate and rhythm, no murmurs, rubs or gallops Abdomen: soft, nontender, nondistended; no guarding, rebound, or tenderness to percussion Musculoskeletal: Calves symmetric, nontender, no palpable cord Skin: No rash, normal skin tone; previous scarring from open heart surgery as well as surgery in the abdomen from diverticulitis. Neuro: Alert and Oriented to person, place, and time; No focal deficit, CN 2-12 symmetric and intact Course - Reevaluation(s) Reevaluation #1: Patient with creatinine of 1.8. Increased from 1.3 back in November which is increased from baseline of 1.1. Patient also has UTI and has had multiple UTIs in the past. No resistance pattern seen on prior cultures. Ceftriaxone given. Chest x-ray shows cardiomegaly. Patient given initial 500 mL bolus and gentle hydration at 125 mL per hour. Case was discussed the hospitalist at 1058. Patient accepted for admission. Vital Signs Temperature 97.9 F 01/02/18 08:06 Pulse Rate 82 01/02/18 08:06 Respiratory Rate 16 01/02/18 08:06 Blood Pressure 158/77 01/02/18 08:06 O2 Sat by Pulse Oximetry 95 01/02/18 08:06 Temperature 97.9 F 01/02/18 08:29 Pulse Rate 73 01/02/18 10:33 Respiratory Rate 14 01/02/18 10:33 Blood Pressure 139/63 01/02/18 10:33 O2 Sat by Pulse Oximetry 100 01/02/18 10:33 Oxygen Delivery Oxygen Delivery Room Air Nausea/Vomiting/Diarrhea - Medical Records Medical records reviewed: Yes I reviewed the patient's medical records. - Lab Data Lab results reviewed: Yes I reviewed the patient's lab results. Result diagrams: 01/02/18 08:25 01/02/18 08:25 Lab Results 01/02/18 01/02/18 01/02/18 Range/Units 08:25 08:25 09:35 WBC 5.7 (4.3-11.1) K/mcL RBC 3.90 L (4.19-5.50) M/mcL Hgb 11.6 L (12.9-16.9) g/dL Hct 35.3 L (37.5-50.1) % MCV 90.5 (83.0-100.0) fL MCH 29.7 (28.0-33.3) pg MCHC 32.9 (31.6-35.5) g/dL RDW 13.4 (11.5-14.5) % Plt Count 142 (140-400) K/mcL MPV 10.9 (9.4-12.4) fL Immature Gran % 0.4 (0-4) % Seg Neutrophils % 60.8 % Lymphocytes % 26.3 % Monocytes % 10.7 % Eosinophils % 1.4 % Basophils % 0.4 % Neutrophils # 3.5 (1.6-8.9) K/mcL Lymphocytes # 1.5 (0.6-4.6) K/mcL Monocytes # 0.6 (0.0-1.3) K/mcL Eosinophils # 0.1 (0.0-0.6) K/mcL Basophils # 0.0 (0.0-0.2) K/mcL Sodium 137 (136-145) mEq/L Potassium 4.0 (3.5-5.1) mEq/L Chloride 104 (98-107) mEq/L Carbon Dioxide 24 (23-29) mEq/L BUN 45 H (8-23) mg/dL Creatinine 1.80 H (0.70-1.30) mg/dL Est GFR ( Amer) 44 L (> 60) Est GFR (Non-Af Amer) 36 L (> 60) BUN/Creatinine Ratio 25 (6-26) Glucose 110 H (70-105) mg/dL Calculated Osmolality 296 (280-300) Calcium 8.9 (8.6-10.3) mg/dL Magnesium 2.3 (1.6-2.6) mg/dL Total Bilirubin 0.7 (0.3-1.0) mg/dL Direct Bilirubin 0.1 (0.0-0.2) mg/dL Indirect Bilirubin 0.6 (0.0-1.2) mg/dL AST 18 (13-39) Units/L ALT 11 (7-52) Units/L Alkaline Phosphatase 60 (34-104) Units/L Troponin I 0.03 (< 0.04) ng/mL Serum Total Protein 6.8 (6.4-8.9) g/dL Albumin 4.2 (3.5-5.7) g/dL Globulin 2.6 (2.4-3.5) g/dL Albumin/Globulin Ratio 1.6 (1.1-2.2) Lipase 13 (11-82) Units/L TSH 1.999 (0.340-5.600) mcIU/mL Urine Color Yellow (Yellow) Urine Clarity Turbid A (Clear) Urine pH 6.0 (5.0-8.0) pH Units Ur Specific [place] 1.010 (1.010-1.025) Urine Protein Trace (Neg-Trace) mg/dL Urine Glucose (UA) Normal (Normal) mg/dL Urine Ketones Negative (Negative) mg/dL Urine Blood Small H (Negative) Urine Nitrite Negative (Negative) Urine Bilirubin Negative (Negative) Urine Urobilinogen Normal (Normal) mg/dL Ur Leukocyte Esterase Large H (Negative) Urine Microscopic RBC 3-5 H (0-3) per hpf Urine Microscopic WBC TNTC H (0-3) per hpf Ur Squamous Epith Cells Few (None-Few) per lpf Urine Bacteria Moderate H (None-Few) per hpf Hyaline Casts None Seen (None-Few) per lpf Ur Culture Indicated? YES A (NO) - Radiology Data Radiology results reviewed: Yes I reviewed the patient's radiology results. - EKG Data EKG attestation: Yes I reviewed and interpreted this EKG. EKG results narrative: EKG shows paced rhythm at 66 with QRS of 213 and QTC of 519. Elevations consistent with pacemaker in unchanged from previous of 11/07/16.
[2018-01-02 09:15] LABS: Thyroid Stimulating Hormone 1.999 mcIU/mL (0.340-5.600)
[2018-01-02 09:47] LABS: Bilirubin,Urine Negative (Negative); Blood,Urine Small (Negative); Clarity,Urine Turbid (Clear); Color,Urine Yellow (Yellow); Glucose,Urine (UA) Normal (Normal); Ketones,Urine Negative (Negative); Leukocyte Esterase,Urine Large (Negative); Nitrite,Urine Negative (Negative); Protein,Urine Trace mg/dL (Neg-Trace); Urobilinogen,Urine Normal (Normal)
[2018-01-02 09:49] LABS: Hyaline Casts,Urine None Seen per lpf (None-Few); Squamous Epithelial Cell,Urine Few per lpf (None-Few); WBC,Urine TNTC per hpf (0-3)
[2018-01-02 10:01] LABS: Bacteria,Urine Moderate per hpf (None-Few)
[2018-01-02] MEDS ORDERED: cefTRIAXone 1,000 MG in Water for inj. (sterile) 20 ML 10 ML IVP STA (10:52)
[2018-01-02] MEDS: 0.9 % Sodium Chloride 1,000 ML IVC SCH ×2 (11:25→16:06)
--- NOTE | 2018-01-02 12:04 | Internal Med History&Physical ---
Date of Encounter: 01/02/18 Time of Encounter: 12:02 Internal Medicine - H&P: HPI Chief complaint: generalized weakness dysuria Admitted From: Emergency Dept Plans for Post Hospital Care: Home History of present illness: Mr. Carbajal is a 87 year old male Patient with history of CAD has a CABG twice in the past, multiple angioplasty in the past, pacemaker, hypertension, CK D, prostate cancer and anemia. Presented emergency room with generalized weakness for several days also some dysuria denies any epigastric pain no fever or chills emergency room evaluations shows acute kidney injury dehydration and a UTI patient admitted for observation and treatment of UTI IV hydration. Past Med Surg Social Fam HX - Past Medical History Medical history: atrial fibrillation, coronary artery disease, hyperlipidemia, hypertension, other Additional medical history: abdominal hernias Psychiatric history: no psych history - Past Surgical History Surgical History: carotid endarterectomy, cataract, coronary bypass (CABG), herniorrhaphy, knee replacement, pacemaker/AICD, other Additional surgical history: eyes-lifted eye lids - Social History Smoking Status: Never smoker Smokeless Tobacco Status: No Alcohol use: none Drug use: none - Family History Mother Living Status: Hx Family Cardiac Disorders: Yes (Heart disease) Internal Medicine - H&P: Meds Carvedilol 12.5 mg PO BID 11/07/16 [History] Cyclosporine [Restasis] 1 drop OP DAILY 11/07/16 [History] Dronedarone [Multaq] 400 mg PO BIDWM 11/07/16 [History] Levothyroxine Sodium [Levoxyl] 75 mcg PO DAILY 11/07/16 [History] Multivit-Min/FA/Lycopen/Lutein [A Thru Z Select Multivit Tab] 1 tab PO DAILY 11/07/16 [History] Simvastatin [Zocor] 10 mg PO DAILY 11/07/16 [History] Omeprazole [PriLOSEC] 40 mg PO BIDAC #60 capsule.dr 11/09/16 [Rx] Pimecrolimus [Elidel] 30 gm TP BID #1 cream..g. 04/24/17 [Rx] predniSONE [PredniSONE] 40 mg PO DAILY 7 Days #14 tablet 04/24/17 [Rx] Allergy/AdvReac Type Severity Reaction Status Date / Time clonidine Allergy See Verified 11/07/16 09:53 Comments Erythromycin Base Allergy See Verified 11/07/16 09:53 [From Erythrocin] Comments Iodinated Contrast- Oral and Allergy See Verified 11/07/16 09:53 IV Dye Comments [Iodinated Contrast Media - IV Dye] Neomycin Allergy See Verified 11/07/16 09:53 Comments povidone-iodine Allergy See Verified 11/07/16 09:53 [From Betadine] Comments Sulfa (Sulfonamide Allergy See Verified 11/07/16 09:53 Antibiotics) Comments sulfamethoxazole Allergy See Verified 11/07/16 09:53 [From Bactrim] Comments trimethoprim [From Bactrim] Allergy See Verified 11/07/16 09:53 Comments All Systems PM: A 10-system review of systems was performed and is negative for pertinent findings except as documented above in the HPI. - Constitutional Vitals: Temp Pulse Resp BP Pulse Ox 97.9 F 68 14 127/59 100 01/02/18 08:29 01/02/18 11:32 01/02/18 11:32 01/02/18 11:32 01/02/18 11:32 Exam: done - Head Head exam: Present: atraumatic, normocephalic - Eye Eye exam: Present: PERRL, conjuntiva pink, sclera anicteric Pupils: Present: PERRL - Neck Neck exam general surgery: Present: supple, trachea midline. Absent: lym phadenopathy - Respiratory Respiratory exam: Present: CTAB. Absent: accessory muscle use, rales, rhonchi, wheezes - Cardiovascular Cardiovascular exam: Present: RRR, +S1, +S2. Absent: diastolic murmur, gallop, rubs, systolic murmur - GI/Abdominal GI/Abdominal exam: Present: normal bowel sounds, soft, no peritoneal signs. Absent: distended, tenderness - Extremities Exam Extremities exam: Present: warm, radial pulses palpable and symmetrical. Absent: calf tenderness, cyanotic, pedal edema - Neurological Exam Neurological exam: Present: CN II-XII intact, oriented X3, no focal deficits. Absent: pronater drift, facial droop, speech deficit - Skin Skin exam: Present: dry, intact Internal Med - H&P Results - Labs CBC & Chem 7: 01/02/18 08:25 01/02/18 08:25 Labs: Short CBC 01/02/18 Range/Units 08:25 WBC 5.7 (4.3-11.1) K/mcL Hgb 11.6 L (12.9-16.9) g/dL Hct 35.3 L (37.5-50.1) % Plt Count 142 (140-400) K/mcL Neutrophils # 3.5 (1.6-8.9) K/mcL BMP 01/02/18 08:25 Sodium 137 Potassium 4.0 Chloride 104 Carbon Dioxide 24 BUN 45 H Creatinine 1.80 H Glucose 110 H Calcium 8.9 Cardiac Enzymes 01/02/18 Range/Units 08:25 Troponin I 0.03 (< 0.04) ng/mL Liver Function 01/02/18 Range/Units 08:25 Total Bilirubin 0.7 (0.3-1.0) mg/dL Direct Bilirubin 0.1 (0.0-0.2) mg/dL AST 18 (13-39) Units/L ALT 11 (7-52) Units/L Alkaline Phosphatase 60 (34-104) Units/L Albumin 4.2 (3.5-5.7) g/dL Urine 01/02/18 Range/Units 09:35 Urine Color Yellow (Yellow) Urine Clarity Turbid A (Clear) Urine pH 6.0 (5.0-8.0) pH Units Ur Specific [place] 1.010 (1.010-1.025) Urine Protein Trace (Neg-Trace) mg/dL Urine Glucose (UA) Normal (Normal) mg/dL - Impressions ITS Impressions Chest X-Ray 01/02/18 08:37 IMPRESSION: No acute process. Moderate to severe cardiomegaly D/ / Rupert Jensen MD / Rupert Jensen MD Interpreting Provider: Rupert Jensen MD - Assessment and plan (1) GIL (acute kidney injury) Current Visit: Yes Status: Acute Assessment and plan: Most likely secondary to dehydration (2) UTI (urinary tract infection) Current Visit: Yes Status: Acute Assessment and plan: We sent urine culture and start on Rocephin Qualifiers: Urinary tract infection type: acute cystitis Hematuria presence: without hematuria Qualified Code(s): N30.00 - Acute cystitis without hematuria (3) Anemia Current Visit: No Status: Chronic Assessment and plan: Chronic hemoglobin is stable Qualifiers: Anemia type: iron deficiency Iron deficiency anemia type: unspecified iron deficiency Qualified Code(s): D50.9 - Iron deficiency anemia, unspecified (4) CAD (coronary artery disease) Current Visit: No Status: Chronic Assessment and plan: History of CABG twice in the past on multiple angioplasty currently not having any chest pain clinically his mother heart failure Qualifiers: Coronary Disease-Associated Artery/Lesion type: bypass graft, autologous artery Associated angina: without angina Qualified Code(s): I25.810 - Atherosclerosis of coronary artery bypass graft(s) without angina pectoris (5) HTN (hypertension) Current Visit: No Status: Chronic Assessment and plan: Chronic and well controlled Qualifiers: Hypertension type: essential hypertension Qualified Code(s): I10 - Essential (primary) hypertension (6) Prostate cancer Current Visit: No Status: Chronic - Time Spent With Patient Total time spent is greater than 50% in coordination of care (as documented) at patient's floor/unit and/or counseling patient:
[2018-01-02] MEDS ORDERED: Naloxone 0.4 MG/ML INJ IVP PRN (12:08)
[2018-01-02] MEDS ORDERED: traMADol 50 MG TABLET PO PRN (12:08)
[2018-01-02] MEDS ORDERED: Acetaminophen 325 MG TABLET PO PRN (12:08)
[2018-01-02] MEDS: PIMECROLIMUS 30 GM TP SCH (21:43)
[2018-01-03] MEDS: 0.9 % Sodium Chloride 1,000 ML IVC SCH ×3 (02:10→08:04)
--- NOTE | 2018-01-03 03:42 | Electrocardiograph Report ---
[facility] Test Date: 2018-01-02 Pat Name: Jamison Carbajal Department: [id number] Room: 3B43 Gender: M Quality Tester: : [id number] Requested By: Christopher Olvera Order Number: [id number] Reading MD: Suraj Stevenson Measurements Intervals [place] Rate: 66 P: [place]: QRS: -86 QRSD: 213 T: 97 QT: 495 QTc: 519 Interpretive Statements Ventricular-paced rhythm Electronically Signed On 01-03-2018 3:41:04 EST by Suraj Stevenson
[2018-01-03 05:36] LABS: Hematocrit 35.2 % (37.5-50.1); Hemoglobin 11.2 g/dL (12.9-16.9); Mean Corpuscular HGB Conc 31.8 g/dL (31.6-35.5); Mean Corpuscular Hemoglobin 29.5 pg (28.0-33.3); Mean Corpuscular Volume 92.6 fL (83.0-100.0); Mean Platelet Volume 11.4 fL (9.4-12.4); Platelet Count 121 K/mcL (140-400); Red Cell Distribution Width 13.2 % (11.5-14.5)
[2018-01-03 05:55] LABS: Chol/HDL Ratio 5.3 (0-4.9)
[2018-01-03] MEDS: Cyclosporine [Restasis] 1 DROP OP SCH (08:00)
[2018-01-03] MEDS: PIMECROLIMUS 30 GM TP SCH (08:00)
[2018-01-03] MEDS: Multivit/Ca/Min/Fe/FA 1 TAB TABLET PO SCH (08:04)
[2018-01-03] MEDS: cefTRIAXone 1,000 MG in Water for inj. (sterile) 20 ML 10 ML IVP SCH (08:05)
[2018-01-03] MEDS ORDERED: predniSONE 20 MG TABLET PO SCH (09:00)
[2018-01-03 09:19] LABS: Calcium 8.4 mg/dL (8.6-10.3); Potassium 3.9 mEq/L (3.5-5.1)
--- NOTE | 2018-01-03 13:40 | Internal Med Progress Note ---
Hospitalist Progress Note - Encounter Date of Encounter: 01/03/18 Time of Encounter: 12:20 - Subjective Interval History: Mr. Carbajal is a 87 year old male with history of CAD s/p CABG x 2, multiple angioplasty in the past, pacemaker, hypertension, CKD -3, prostate cancer and chronic anemia pt presented to emergency room with generalized weakness for several days also some dysuria. He was admitted in the hospital for acute kidney injury due to dehydration and UTI. Pt was started on empirical abx Rocephin and IV hydration. Patient stated he is feeling a lot better today. He denied any chest pain, shortness of breath. He still feels weak and lethargic - Exam Vitals: Temp Pulse Resp BP Pulse Ox 98.0 F 71 16 128/69 97 01/03/18 11:45 01/03/18 11:45 01/03/18 11:45 01/03/18 11:45 01/03/18 11:45 Exam: Gen: Alert, awake, Oriented to time,place and person Chest: Diminished breath sounds B/L, No wheezing, No crackles, No rales Heart: S1S2+ RRR No murmurs Abd: Soft, NT, BS +, No organomegaly Ext: No edema, pulses are palpable, No calf tenderness Neuro : Benign findings Skin: No rash. - Assessment and Plan (1) UTI (urinary tract infection) Current Visit: Yes Status: Acute Assessment and Plan: Urine cx growing G+ve cocci cont empirical abx Rocephin for now (2) Acute renal failure superimposed on stage 3 chronic kidney disease Current Visit: Yes Status: Acute Assessment and Plan: Improving Cr improved to 1.5 which is close to baseline (3) Anemia Current Visit: No Status: Chronic Assessment and Plan: Chronic anemia stable Hb @ 11.2 no further work up needed (4) CAD (coronary artery disease) Current Visit: No Status: Chronic Assessment and Plan: no CP now resumed all home medications ASA, Statin, BB (5) HTN (hypertension) Current Visit: No Status: Chronic Assessment and Plan: Stable with current home medications - Time Spent with Patient Total time spent is greater than 50% in coordination of care (as documented) at patient's floor/unit and/or counseling patient: Internal Medicine: Result - Labs CBC & Chem 7: 01/03/18 04:54 01/03/18 04:54 Labs: Short CBC 01/03/18 Range/Units 04:54 WBC 8.7 D (4.3-11.1) K/mcL Hgb 11.2 L (12.9-16.9) g/dL Hct 35.2 L (37.5-50.1) % Plt Count 121 L (140-400) K/mcL BMP 01/02/18 01/03/18 08:25 04:54 Sodium 137 140 Potassium 4.0 3.9 Chloride 104 109 H Carbon Dioxide 24 22 L BUN 45 H 36 H Creatinine 1.80 H 1.51 H Glucose 110 H 111 H Calcium 8.9 8.4 L Cardiac Enzymes 01/02/18 Range/Units 08:25 Troponin I 0.03 (< 0.04) ng/mL Liver Function 01/02/18 Range/Units 08:25 Total Bilirubin 0.7 (0.3-1.0) mg/dL Direct Bilirubin 0.1 (0.0-0.2) mg/dL AST 18 (13-39) Units/L ALT 11 (7-52) Units/L Alkaline Phosphatase 60 (34-104) Units/L Albumin 4.2 (3.5-5.7) g/dL Consult Discharge Plan - Plan Referrals: Isaias Welsh MD [Primary Care Provider] - (1) UTI (urinary tract infection) Qualifiers: Urinary tract infection type: acute cystitis Hematuria presence: without hematuria Qualified Code(s): N30.00 - Acute cystitis without hematuria (3) Anemia Qualifiers: Anemia type: iron deficiency Iron deficiency anemia type: unspecified iron deficiency Qualified Code(s): D50.9 - Iron deficiency anemia, unspecified (4) CAD (coronary artery disease) Qualifiers: Coronary Disease-Associated Artery/Lesion type: bypass graft, autologous artery Associated angina: without angina Qualified Code(s): I25.810 - Atherosclerosis of coronary artery bypass graft(s) without angina pectoris (5) HTN (hypertension) Qualifiers: Hypertension type: essential hypertension Qualified Code(s): I10 - Essential (primary) hypertension
[2018-01-04 07:13] VITALS: BP 137/77
[2018-01-04] MEDS ORDERED: Aspirin Enteric Coated 81 MG Tablet PO SCH (09:00)
[2018-01-04] MEDS: Multivit/Ca/Min/Fe/FA 1 TAB TABLET PO SCH (09:30)
[2018-01-04] MEDS: Cyclosporine [Restasis] 1 DROP OP SCH (09:31)
[2018-01-04] MEDS: cefTRIAXone 1,000 MG in Water for inj. (sterile) 20 ML 10 ML IVP SCH (09:31)
--- NOTE | 2018-01-04 10:30 | Discharge Summary ---
- NOTES TO OUTPATIENT PROVIDER Notes to Outpatient Provider: Follow up with PCP in one week Date of Encounter: 01/04/18 Time of Encounter: 10:23 - Discharge Diagnosis (1) UTI (urinary tract infection) Priority: Primary Status: Acute Qualifiers: Urinary tract infection type: acute cystitis Hematuria presence: without hematuria Qualified Code(s): N30.00 - Acute cystitis without hematuria (2) Acute renal failure superimposed on stage 3 chronic kidney disease Priority: Primary Status: Acute Qualifiers: Acute renal failure type: unspecified Qualified Code(s): N17.9 - Acute kidney failure, unspecified; N18.3 - Chronic kidney disease, stage 3 (moderate) (3) Anemia Priority: Secondary Status: Chronic Qualifiers: Anemia type: iron deficiency Iron deficiency anemia type: unspecified iron deficiency Qualified Code(s): D50.9 - Iron deficiency anemia, unspecified (4) CAD (coronary artery disease) Priority: Secondary Status: Chronic Qualifiers: Coronary Disease-Associated Artery/Lesion type: bypass graft, autologous artery Associated angina: without angina Qualified Code(s): I25.810 - Atherosclerosis of coronary artery bypass graft(s) without angina pectoris (5) HTN (hypertension) Priority: Secondary Status: Chronic Qualifiers: Hypertension type: essential hypertension Qualified Code(s): I10 - Essential (primary) hypertension Hospital course: Mr. Carbajal is a 87 year old male with history of CAD s/p CABG x 2, multiple angioplasty in the past, pacemaker, hypertension, CKD -3, prostate cancer and chronic anemia pt presented to emergency room with generalized weakness for several days also some dysuria. He was admitted in the hospital for acute kidney injury due to dehydration and UTI. Pt was started on empirical abx Rocephin and IV hydration. His symptoms improved. Patient stated he is feeling a lot better today. His urine culture grew staph epidermidis. Started him on oral abx Doxy for 5 more days. Will d/c him home in stable condition today. - Time Spent with Patient Total time spent providing and/or coordinating discharge services: - Discharge Medications Prescriptions: Doxycycline Hyclate 100 mg PO BID #10 tablet Home Medications: Levothyroxine Sodium [Levoxyl] 75 mcg PO DAILY 11/07/16 [History] Multivit-Min/FA/Lycopen/Lutein [A Thru Z Select Multivit Tab] 1 tab PO DAILY 11/07/16 [History] Apixaban [Eliquis] 2.5 mg PO BID 01/02/18 [History] Carvedilol [Coreg] 25 mg PO BID 01/02/18 [History] Furosemide [Lasix] 20 mg PO DAILY 01/02/18 [History] Omeprazole [PriLOSEC] 40 mg PO DAILY 01/02/18 [History] Sacubitril/Valsartan 49/51 mg [Entresto 49 mg-51 mg Tablet] 1 tab PO BID 01/02/18 [History] Doxycycline Hyclate 100 mg PO BID #10 tablet 01/04/18 [Rx] Allergies/Adverse Reactions: Allergy/AdvReac Type Severity Reaction Status Date / Time clonidine Allergy See Verified 11/07/16 09:53 Comments Erythromycin Base Allergy See Verified 11/07/16 09:53 [From Erythrocin] Comments Iodinated Contrast- Oral and Allergy See Verified 11/07/16 09:53 IV Dye Comments [Iodinated Contrast Media - IV Dye] Neomycin Allergy See Verified 11/07/16 09:53 Comments povidone-iodine Allergy See Verified 11/07/16 09:53 [From Betadine] Comments Sulfa (Sulfonamide Allergy See Verified 11/07/16 09:53 Antibiotics) Comments sulfamethoxazole Allergy See Verified 11/07/16 09:53 [From Bactrim] Comments trimethoprim [From Bactrim] Allergy See Verified 11/07/16 09:53 Comments Date of admission: 01/02/18 11:04 Primary care physician: Isaias Welsh MD - Constitutional Vitals: Temp Pulse Resp BP Pulse Ox 97.6 F 92 16 137/77 98 01/04/18 07:12 01/04/18 07:12 01/04/18 07:12 01/04/18 07:12 01/04/18 07:12 General appearance: Present: cooperative, A&O X 3, no acute distress, answers questions appropriately Exam: Gen: Alert, awake, Oriented to time,place and person Chest: Diminished breath sounds B/L, No wheezing, No crackles, No rales Heart: S1S2+ RRR No murmurs Abd: Soft, NT, BS +, No organomegaly Ext: No edema, pulses are palpable, No calf tenderness Neuro : Benign findings Skin: No rash. - Patient Status Disposition: Home, Self-Care Condition: Good Overall status at discharge: patient is back to baseline - Discharge Instructions Follow Up With: Isaias Welsh MD [Primary Care Provider] - 01/11/18 1:00 pm - Diet and Activity Activity: increase activity as tolerated Diet: low salt diet
== END 2018-01-04 12:15 | disposition home or self-care (01) ==
LOC: 3BNU 08:04 → EMEROOARM 08:04 → SUATTDRO 11:04 → 3BNU 14:16
PROVIDERS: ADMIT Internal Medicine Cardiovascular Disease; ATTEND Family Medicine

== ENCOUNTER 2018-06-04 10:41 | Observation (INO) ==
--- NOTE | 2018-06-04 12:30 | Emergency Department Note ---
Disposition Clinical Impression: CKD (chronic kidney disease) stage 3, GFR 30-59 ml/min Congestive heart failure Qualifiers: Heart failure type: unspecified Heart failure chronicity: acute on chronic Qualified Code(s): I50.9 - Heart failure, unspecified Anemia Qualifiers: Anemia type: unspecified type Qualified Code(s): D64.9 - Anemia, unspecified Disposition: Admitted As Inpatient Condition: Fair Referrals: Isaias Welsh MD [Primary Care Provider] - Forms: ED Satisfaction Letter General Adult HPI - General Chief complaint: ED Shortness of Breath/Dyspnea Stated complaint: TEMI,Fluid retention, bloody stool Time Seen by Provider: 06/04/18 10:55 Source: patient, family Limitations: no limitations Nursing Notes Reviewed: Yes Vital Signs Reviewed: Yes - History of Present Illness HPI Narrative: This documentation is done with the assistance of Dragon dictation. Despite efforts made to ensure accuracy, there may be inaccuracies in board of education secretary or spelling and typographical errors. The history, physical exam, and medical decision making was performed by the medical student either while I was physically present and actively involved or I personally re-performed the exam and medical decision making. I have verified the accuracy of the medical student's documentation with regards to the history, physical exam findings, and medical decision making. Chief complaints dyspnea history this is an 88-year-old gentleman he comes in today complaining of dyspnea that sounds expend going on since the start of the weekend. He is coming by his daughter. Somewhat conversationally dyspneic. But the daughter says this is better than earlier in the day is she said the ride over he was short of breath. So please had a history of a GI bleed with anemia is currently on iron supplements but still getting dark-colored stool. History of an ulcer and sees GI for that. Has orthopnea and not able to lay flat feels better sitting upright. Denies any chest pain today but has had episodes of chest pain for last 2 days which have been brief in origin. He does see cardiology but has not seen him recently. Currently is having no chest pain at this time is not on oxygen at home. Past history reviewed in nurse's notes reviewed allergies reviewed mid list reviewed. Pain Scale: 0 - Related Data Home Medications Medication Instructions Recorded Confirmed Levothyroxine Sodium [Levoxyl] 75 mcg PO DAILY 11/07/16 04/04/18 Multivit-Min/FA/Lycopen/Lutein [A 1 tab PO DAILY 11/07/16 04/04/18 Thru Z Select Multivit Tab] Apixaban [Eliquis] 2.5 mg PO BID 01/02/18 04/04/18 Carvedilol [Coreg] 25 mg PO BID 01/02/18 04/04/18 Furosemide [Lasix] 20 mg PO DAILY 01/02/18 04/04/18 Omeprazole [PriLOSEC] 20 mg PO BID 01/02/18 04/04/18 Sacubitril/Valsartan 49/51 mg 1 tab PO BID 01/02/18 04/04/18 [Entresto 49 mg-51 mg Tablet] Previous Rx's Medication Instructions Recorded Aspirin Enteric Coated [Aspirin EC] 81 mg PO DAILY #30 tablet. 04/05/18 Allergies Allergy/AdvReac Type Severity Reaction Status Date / Time clonidine Allergy See Verified 11/07/16 09:53 Comments Erythromycin Base Allergy See Verified 11/07/16 09:53 [From Erythrocin] Comments Iodinated Contrast- Oral and Allergy See Verified 11/07/16 09:53 IV Dye Comments [Iodinated Contrast Media - IV Dye] Neomycin Allergy See Verified 11/07/16 09:53 Comments povidone-iodine Allergy See Verified 11/07/16 09:53 [From Betadine] Comments Sulfa (Sulfonamide Allergy See Verified 11/07/16 09:53 Antibiotics) Comments sulfamethoxazole Allergy See Verified 11/07/16 09:53 [From Bactrim] Comments trimethoprim [From Bactrim] Allergy See Verified 11/07/16 09:53 Comments Review of Systems: Temperature is 97.4, pulse is 60 this 70, respirations are 18 and nonlabored though he does have some accessory muscle use. BP is 140/69 pulse ox is 9900% on room air. He is alert cooperative nontoxic in appearance. HEENT is normocephalic PERRL airways midline no drooling no stridor posterior pharynx is unremarkable. Cardiovascular is regular rate and rhythm without rubs. Lungs have some crackles in the bases. He is using some accessory muscles to breathe but appears in no distress and sats are 100% on room air. Abdomen soft nonsurgical good bowel sounds no masses Extremities are present 4 with good distal pulses Refill is brisk he does have pitting edema in his ankles. No calf pain. Dermatologic skin is warm and dry he appears pale to me and the daughter thinks so also no signs of acute rash petechia or jaundice. Neurologic moves all extremities GCS is 15 he is alert person place and time no focal deficits. Past Medical History - Past Medical History Medical history: Reports: atrial fibrillation, CHF, coronary artery disease, hyperlipidemia, hypertension, thyroid disease, other Surgical history: Reports: carotid endarterectomy, cataract, coronary bypass (C ABG), herniorrhaphy, knee replacement, pacemaker/AICD, other Psychiatric history: Reports: no psych history - Social History Smoking Status: Never smoker Smokeless Tobacco Status: No Alcohol use: Reports: none Drug use: Reports: none Physical Exam - General Limitations: no limitations General appearance: alert, in no apparent distress Course Vital Signs Temperature 97.4 F L 06/04/18 10:45 Pulse Rate 70 06/04/18 10:45 Respiratory Rate 20 06/04/18 10:45 Blood Pressure 107/61 06/04/18 10:45 O2 Sat by Pulse Oximetry 100 06/04/18 10:45 Temperature 97.4 F L 06/04/18 10:45 Pulse Rate 71 06/04/18 12:57 Respiratory Rate 15 06/04/18 12:57 Blood Pressure 142/70 06/04/18 12:57 O2 Sat by Pulse Oximetry 99 06/04/18 12:57 Oxygen Delivery Oxygen Delivery Nasal Cannula Medical Decision Making - [facility] Narrative Medical decision making narrative: We will do a cardiac workup on him chest x-ray also because of his history of GI bleed and anemia to rule out anemia here today. He will need to stay in the hospital. He is in agreement this plan. Chest X-Ray 06/04/18 10:56 IMPRESSION: Mild congestive heart failure D/ / 06/04/2018 11:20:37 Palmer Gilbert MD / [email or web address] Interpreting Provider: Palmer Gilbert MD 1300 hrs. chest x-ray shows mild congestive heart failure with his symptoms were in a give him an increased dose of Lasix here and then see how his labs look. He is in agreement this plan. 1351 hrs.: Patient's BNP is elevated. His hemoglobin is low but around the same as it usually is. Chest x-ray shows the CHF pattern sort in a go ahead and bring him into the hospital also order him a cardiac diet and then speak with hospitalist for admission. He is in agreement with this plan. Impressions acute exacerbation of CHF. #2 anemia chronic. - Lab Data Result diagrams: 06/04/18 12:23 06/04/18 12:23 Lab Results 06/04/18 06/04/18 06/04/18 Range/Units 12:23 12:23 12:23 WBC 4.7 (4.3-11.1) K/mcL RBC 4.30 (4.19-5.50) M/mcL Hgb 10.7 L (12.9-16.9) g/dL Hct 35.6 L (37.5-50.1) % MCV 82.8 L (83.0-100.0) fL MCH 24.9 L (28.0-33.3) pg MCHC 30.1 L (31.6-35.5) g/dL RDW 17.0 H (11.5-14.5) % Plt Count 74 L (140-400) K/mcL MPV TNP Immature Gran % 0.2 (0-4) % Seg Neutrophils % 68.2 % Lymphocytes % 18.2 % Monocytes % 11.1 % Eosinophils % 1.7 % Basophils % 0.6 % Neutrophils # 3.2 (1.6-8.9) K/mcL Lymphocytes # 0.9 (0.6-4.6) K/mcL Monocytes # 0.5 (0.0-1.3) K/mcL Eosinophils # 0.1 (0.0-0.6) K/mcL Basophils # 0.0 (0.0-0.2) K/mcL Platelet Estimate Slight Decrease L (Normal) Immature Plt Fraction 10.2 H (1.1-6.1) % Poikilocytosis 1+ A (Not Present) Anisocytosis 1+ A (Not Present) Sodium 138 (136-145) mEq/L Potassium 4.4 (3.5-5.1) mEq/L Chloride 104 (98-107) mEq/L Carbon Dioxide 24 (23-29) mEq/L BUN 31 H (8-23) mg/dL Creatinine 1.66 H (0.70-1.30) mg/dL Est GFR ( Amer) 48 L (> 60) Est GFR (Non-Af Amer) 39 L (> 60) BUN/Creatinine Ratio 19 (6-26) Glucose 102 (70-105) mg/dL Calculated Osmolality 293 (280-300) Calcium 9.3 (8.6-10.3) mg/dL Troponin I < 0.03 (< 0.04) ng/mL B-Natriuretic Peptide 2681 H (Less than 100) pg/mL TSH 4.753 (0.340-5.600) mcIU/mL Blood Type Antibody Screen 06/04/18 Range/Units 12:23 WBC (4.3-11.1) K/mcL RBC (4.19-5.50) M/mcL Hgb (12.9-16.9) g/dL Hct (37.5-50.1) % MCV (83.0-100.0) fL MCH (28.0-33.3) pg MCHC (31.6-35.5) g/dL RDW (11.5-14.5) % Plt Count (140-400) K/mcL MPV Immature Gran % (0-4) % Seg Neutrophils % % Lymphocytes % % Monocytes % % Eosinophils % % Basophils % % Neutrophils # (1.6-8.9) K/mcL Lymphocytes # (0.6-4.6) K/mcL Monocytes # (0.0-1.3) K/mcL Eosinophils # (0.0-0.6) K/mcL Basophils # (0.0-0.2) K/mcL Platelet Estimate (Normal) Immature Plt Fraction (1.1-6.1) % Poikilocytosis (Not Present) Anisocytosis (Not Present) Sodium (136-145) mEq/L Potassium (3.5-5.1) mEq/L Chloride (98-107) mEq/L Carbon Dioxide (23-29) mEq/L BUN (8-23) mg/dL Creatinine (0.70-1.30) mg/dL Est GFR ( Amer) (> 60) Est GFR (Non-Af Amer) (> 60) BUN/Creatinine Ratio (6-26) Glucose (70-105) mg/dL Calculated Osmolality (280-300) Calcium (8.6-10.3) mg/dL Troponin I (< 0.04) ng/mL B-Natriuretic Peptide (Less than 100) pg/mL TSH (0.340-5.600) mcIU/mL Blood Type O POSITIVE Antibody Screen NEGATIVE
--- NOTE | 2018-06-04 12:33 | Emergency Department Note ---
Disposition Clinical Impression: Congestive heart failure, Anemia, CKD (chronic kidney disease) stage 3, GFR 30- 59 ml/min Disposition: Admitted As Inpatient Condition: Fair General Adult HPI - General Chief complaint: ED Shortness of Breath/Dyspnea Stated complaint: TEMI,Fluid retention, bloody stool Time Seen by Provider: 06/04/18 10:55 Source: patient, family Limitations: no limitations - History of Present Illness HPI Narrative: 88 yo M with a h/o Systolic Heart failure with an LVEF of 45-50% presents to the ED c/o SOB over the past week. Pt's family reports that the pt has been c/o SOB over the past week but over the past 3 days it has progressively worsened to where the pt is dyspneic at rest and has orthopnea. Family also says that the pt has had increasing pedal edema over the past 3 days which he has not had in the past. Pt states that two days ago he had some CP in the morning when he woke up but is unable to describe the pain or how long the pain lasted but states that he is not having any CP currently. The pt also reports that for the past 2 weeks he has had some melena, and notes he has a known peptic ulcer, and saw his PCP who did a stool guiac and CBC that was positive and showed anemia and was started on iron supplements 5 days ago. Pt's family says that he appears to have more pallor than usual for him. Pt says that he does have some nausea as well b ut denies any vomiting, fever, chills, cough, abd pain or any other sx at this time. Family reports that the pt's lasix was doubled to 20mg BID over the past week but states that he continues to have increased pedal edema. Daughter also says that the pt's Entresto was cut in half about 2 weeks ago by his PCP due to his is decreased renal function. Pain Scale: 0 - Related Data Home Medications Medication Instructions Recorded Confirmed Levothyroxine Sodium [Levoxyl] 75 mcg PO DAILY 11/07/16 04/04/18 Multivit-Min/FA/Lycopen/Lutein [A 1 tab PO DAILY 11/07/16 04/04/18 Thru Z Select Multivit Tab] Apixaban [Eliquis] 2.5 mg PO BID 01/02/18 04/04/18 Carvedilol [Coreg] 25 mg PO BID 01/02/18 04/04/18 Furosemide [Lasix] 20 mg PO DAILY 01/02/18 04/04/18 Omeprazole [PriLOSEC] 20 mg PO BID 01/02/18 04/04/18 Sacubitril/Valsartan 49/51 mg 1 tab PO BID 01/02/18 04/04/18 [Entresto 49 mg-51 mg Tablet] Previous Rx's Medication Instructions Recorded Aspirin Enteric Coated [Aspirin EC] 81 mg PO DAILY #30 tablet. 04/05/18 Allergies Allergy/AdvReac Type Severity Reaction Status Date / Time clonidine Allergy See Verified 11/07/16 09:53 Comments Erythromycin Base Allergy See Verified 11/07/16 09:53 [From Erythrocin] Comments Iodinated Contrast- Oral and Allergy See Verified 11/07/16 09:53 IV Dye Comments [Iodinated Contrast Media - IV Dye] Neomycin Allergy See Verified 11/07/16 09:53 Comments povidone-iodine Allergy See Verified 11/07/16 09:53 [From Betadine] Comments Sulfa (Sulfonamide Allergy See Verified 11/07/16 09:53 Antibiotics) Comments sulfamethoxazole Allergy See Verified 11/07/16 09:53 [From Bactrim] Comments trimethoprim [From Bactrim] Allergy See Verified 11/07/16 09:53 Comments All systems ED: reviewed and negative except as stated. Constitutional: Denies: fever, chills Cardiovascular: Reports: dyspnea on exertion, orthopnea, edema. Denies: palpitations, syncope Respiratory: Reports: dyspnea. Denies: cough, wheezes, hemoptysis Gastrointestinal: Reports: nausea. Denies: abdominal pain, vomiting, diarrhea Genitourinary: Denies: urgency, dysuria Neurological: Denies: headache, weakness Endocrine: Denies: polydipsia, polyuria Past Medical History - Past Medical History Medical history: Reports: atrial fibrillation, CHF, coronary artery disease, hyperlipidemia, hypertension, thyroid disease, other Surgical history: Reports: carotid endarterectomy, cataract, coronary bypass (CABG), herniorrhaphy, knee replacement, pacemaker/AICD, other Psychiatric history: Reports: no psych history - Social History Smoking Status: Never smoker Smokeless Tobacco Status: No Alcohol use: Reports: none Drug use: Reports: none Physical Exam - General Limitations: no limitations General appearance: alert, in no apparent distress Course Vital Signs Temperature 97.4 F L 06/04/18 10:45 Pulse Rate 70 06/04/18 10:45 Respiratory Rate 20 06/04/18 10:45 Blood Pressure 107/61 06/04/18 10:45 O2 Sat by Pulse Oximetry 100 06/04/18 10:45 Temperature 97.4 F L 06/04/18 10:45 Pulse Rate 67 06/04/18 11:22 Respiratory Rate 21 06/04/18 11:22 Blood Pressure 133/69 06/04/18 11:22 O2 Sat by Pulse Oximetry 99 06/04/18 11:22 Oxygen Delivery Oxygen Delivery Room Air Medical Decision Making - Lab Data Result diagrams: 06/04/18 12:23 06/04/18 12:23
[2018-06-04 12:39] LABS: Immature Granulocytes % 0.2 % (0-4); Mean Corpuscular HGB Conc 30.1 g/dL (31.6-35.5); Mean Corpuscular Hemoglobin 24.9 pg (28.0-33.3); Mean Corpuscular Volume 82.8 fL (83.0-100.0)
[2018-06-04 12:41] LABS: Basophils % 0.6 %; Eosinophils # 0.1 K/mcL (0.0-0.6); Eosinophils % 1.7 %; Hematocrit 35.6 % (37.5-50.1); Hemoglobin 10.7 g/dL (12.9-16.9); Immature Platelets 10.2 % (1.1-6.1); Lymphocytes # 0.9 K/mcL (0.6-4.6); Lymphocytes % 18.2 %; Monocytes # 0.5 K/mcL (0.0-1.3); Monocytes % 11.1 %; Neutrophils # 3.2 K/mcL (1.6-8.9); Segmented Neutrophils % 68.2 %
[2018-06-04 13:01] LABS: BUN/Creatinine Ratio 19 (6-26); Blood Urea Nitrogen 31 mg/dL (8-23); Calcium 9.3 mg/dL (8.6-10.3); Carbon Dioxide 24 mEq/L (23-29); Chloride 104 mEq/L (98-107); Glucose 102 mg/dL (70-105); Osmolality,Calculated 293 (280-300); Potassium 4.4 mEq/L (3.5-5.1); Sodium 138 mEq/L (136-145); eGFR For Non-African Americans 39 (> 60)
[2018-06-04 13:02] LABS: Troponin I < 0.03 ng/mL (< 0.04)
[2018-06-04] MEDS ORDERED: Furosemide 20 MG/2 ML VIAL IVP ONE (13:04)
[2018-06-04 13:07] LABS: Platelet Count 74 K/mcL (140-400)
[2018-06-04 13:15] LABS: Thyroid Stimulating Hormone 4.753 mcIU/mL (0.340-5.600)
[2018-06-04 13:16] LABS: Anisocytosis 1+ (Not Present)
[2018-06-04 13:17] LABS: Platelet Estimate Slight Decrease (Normal); Poikilocytosis 1+ (Not Present)
--- NOTE | 2018-06-04 17:03 | Internal Med History&Physical ---
Date of Encounter: 06/04/18 Time of Encounter: 17:00 Internal Medicine - H&P: HPI Chief complaint: Short breath Admitted From: Home Plans for Post Hospital Care: Home History of present illness: Patient is an 88-year-old male with past medical history significant for ischemic cardiomyopathy (CABG/systolic heart failure with AICD), atrial fibrillation on Eliquis for altered regulation, hypertension and hyperlipidemia who presents to the ER due to shortness of breath. Patient reports of shortness of breath for the past week that has gotten worse over last 24 hours. Patient reports of orthopnea in addition to dyspnea on exertion. Patient also reports a bilateral lower extremity edema. On further history, patient does admit to increased sodium intake by eating foods higher in sodium content over the last 2 weeks. Daughter was concerned about patient and brought him to the ER for further evaluation. In the ER, patient was found to have a BNP of 2681 and mild vascular congestion on chest x-ray. Patient was given a one-time dose of IV Lasix 20 mg in ER and will be admitted to the observation unit for further management. Past Med Surg Social Fam HX - Past Medical History Medical history: atrial fibrillation, CHF, coronary artery disease, hyperlipidemia, hypertension, thyroid disease, other Additional medical history: abdominal hernias Psychiatric history: no psych history - Past Surgical History Surgical History: carotid endarterectomy, cataract, coronary bypass (CABG), herniorrhaphy, knee replacement, pacemaker/AICD, other Additional surgical history: 4 stents, eyes-lifted eye lids - Social History Smoking Status: Never smoker Smokeless Tobacco Status: No Alcohol use: none Drug use: none - Family History Mother Living Status: Hx Family Cardiac Disorders: Yes (Heart disease) Internal Medicine - H&P: Meds Levothyroxine Sodium [Levoxyl] 75 mcg PO DAILY 11/07/16 [History] Multivit-Min/FA/Lycopen/Lutein [A Thru Z Select Multivit Tab] 1 tab PO DAILY 11/07/16 [History] Apixaban [Eliquis] 2.5 mg PO BID 01/02/18 [History] Carvedilol [Coreg] 25 mg PO BID 01/02/18 [History] Furosemide [Lasix] 20 mg PO DAILY 01/02/18 [History] Omeprazole [PriLOSEC] 20 mg PO BID 01/02/18 [History] Sacubitril/Valsartan 49/51 mg [Entresto 49 mg-51 mg Tablet] 1 tab PO BID 01/02/18 [History] Aspirin Enteric Coated [Aspirin EC] 81 mg PO DAILY #30 tablet. 04/05/18 [Rx] Allergy/AdvReac Type Severity Reaction Status Date / Time clonidine Allergy See Verified 11/07/16 09:53 Comments Erythromycin Base Allergy See Verified 11/07/16 09:53 [From Erythrocin] Comments Iodinated Contrast- Oral and Allergy See Verified 11/07/16 09:53 IV Dye Comments [Iodinated Contrast Media - IV Dye] Neomycin Allergy See Verified 11/07/16 09:53 Comments povidone-iodine Allergy See Verified 11/07/16 09:53 [From Betadine] Comments Sulfa (Sulfonamide Allergy See Verified 11/07/16 09:53 Antibiotics) Comments sulfamethoxazole Allergy See Verified 11/07/16 09:53 [From Bactrim] Comments trimethoprim [From Bactrim] Allergy See Verified 11/07/16 09:53 Comments All Systems PM: A 10-system review of systems was performed and is negative for pertinent findings except as documented above in the HPI. - Constitutional Vitals: Temp Pulse Resp BP Pulse Ox 97.7 F 63 14 126/77 97 06/04/18 16:22 06/04/18 16:22 06/04/18 16:22 06/04/18 16:22 06/04/18 16:22 Exam: General appearance: Present: A&O X 3, no acute distress - Head Head exam: Present: normocephalic - Eye Eye exam: Present: normal appearance - ENT ENT exam: Present: mucous membranes moist - Respiratory Respiratory exam: Present: CTAB. Absent: accessory muscle use, rales, rhonchi, wheezes - Cardiovascular Cardiovascular exam: Present: RRR, +S1, +S2. Absent: diastolic murmur, gallop, rubs, systolic murmur - GI/Abdominal GI/Abdominal exam: Present: normal bowel sounds, soft, no peritoneal signs. Absent: distended, tenderness - Extremities Exam Extremities exam: Bilateral +1 pitting edema up to mid tibia - Neurological Exam Neurological exam: Present: alert, oriented X3, no focal deficits. Absent: altered - Psychiatric Psychiatric exam: -normal mood Skin exam: -normal color Internal Med - H&P Results - Labs CBC & Chem 7: 06/04/18 12:23 06/04/18 12:23 Labs: Short CBC 06/04/18 Range/Units 12:23 WBC 4.7 (4.3-11.1) K/mcL Hgb 10.7 L (12.9-16.9) g/dL Hct 35.6 L (37.5-50.1) % Plt Count 74 L (140-400) K/mcL Neutrophils # 3.2 (1.6-8.9) K/mcL BMP 06/04/18 12:23 Sodium 138 Potassium 4.4 Chloride 104 Carbon Dioxide 24 BUN 31 H Creatinine 1.66 H Glucose 102 Calcium 9.3 Cardiac Enzymes 06/04/18 Range/Units 12:23 Troponin I < 0.03 (< 0.04) ng/mL - Impressions ITS Impressions Chest X-Ray 06/04/18 10:56 IMPRESSION: Mild congestive heart failure D/ / 06/04/2018 11:20:37 Palmer Gilbert MD / [email or web address] Interpreting Provider: Palmer Gilbert MD - Assessment and Plan (1) Acute on chronic systolic (congestive) heart failure Current Visit: Yes Status: Acute Assessment and plan: Patient reports of shortness of breath for the past week that has gotten worse over last 24 hours with orthopnea, dyspnea on exertion and bilateral lower extremity edema. Patient does admit to increased sodium intake by eating foods higher in sodium content over the last 2 weeks. In the ER, patient was found to have a BNP of 2681 and mild vascular congestion on chest x-ray. Echocardiogram on 04/04 since show LVEF of 45-50% with mild segmental left trigger systolic dysfunction and mild to moderate pulmonary hypertension. Will continue IV Lasix 20 mg twice daily started in the ER (2) Paroxysmal A-fib Current Visit: No Status: Acute Assessment and plan: Continue oral anticoagulation with Eliquis (3) CAD (coronary artery disease) Current Visit: No Status: Chronic Assessment and plan: Patient with past medical history significant for ischemic cardiomyopathy (CABG/systolic heart failure with AICD) Continue home medications Qualifiers: Coronary Disease-Associated Artery/Lesion type: [place] artery Qualified Code(s): I25.10 - Atherosclerotic heart disease of [place] coronary artery without angina pectoris (4) Anemia Current Visit: Yes Status: Chronic Assessment and plan: Hemoglobin on admission 10.7 which is at baseline. Will continue to monitor Qualifiers: Anemia type: unspecified type Qualified Code(s): D64.9 - Anemia, unspecified (5) Thrombocytopenia Current Visit: Yes Status: Acute Assessment and plan: Patient with low platelets over the past 6 months Will continue to monitor (6) CKD (chronic kidney disease) stage 3, GFR 30-59 ml/min Current Visit: Yes Status: Acute Assessment and plan: Creatinine at 1.66 on admission which is close to baseline. Expect creatinine to increase due to IV diuresis as above. Continue to monitor (7) HTN (hypertension) Current Visit: No Status: Chronic Assessment and plan: Continue home medications Qualifiers: Hypertension type: unspecified Qualified Code(s): I10 - Essential (primary) hypertension (8) Hypothyroid Current Visit: Yes Status: Acute Assessment and plan: Continue home medications Qualifiers: Hypothyroidism type: unspecified Qualified Code(s): E03.9 - Hypothyroidism, unspecified (9) DVT prophylaxis Current Visit: Yes Status: Acute Assessment and plan: Will continue home dose of Eliquis - Time Spent With Patient Total time spent is greater than 50% in coordination of care (as documented) at patient's floor/unit and/or counseling patient:
[2018-06-04] MEDS ORDERED: Naloxone 0.4 MG/ML INJ IVP PRN (17:18)
[2018-06-04] MEDS: Furosemide 20 MG/2 ML VIAL IVP SCH (20:08)
[2018-06-04] MEDS: Apixaban 2.5 MG TABLET PO SCH (21:28)
[2018-06-04] MEDS: Cholecalciferol (D-3) 1,000 UNIT TABLET PO SCH (21:28)
[2018-06-04] MEDS: Ascorbic Acid 500 MG TABLET PO SCH (21:28)
[2018-06-04] MEDS: SACUBITRIL/VALSARTAN 49/51 MG TABLET PO SCH (23:00)
[2018-06-05 06:01] LABS: Eosinophils % 2.9 %; Mean Corpuscular Volume 81.6 fL (83.0-100.0)
[2018-06-05 06:03] LABS: Basophils % 0.4 %; Eosinophils # 0.1 K/mcL (0.0-0.6); Hematocrit 34.2 % (37.5-50.1); Hemoglobin 10.6 g/dL (12.9-16.9); Immature Granulocytes % 0.4 % (0-4); Immature Platelets 10.2 % (1.1-6.1); Lymphocytes # 1.1 K/mcL (0.6-4.6); Lymphocytes % 22.1 %; Mean Corpuscular Hemoglobin 25.3 pg (28.0-33.3); Mean Platelet Volume 11.9 fL (9.4-12.4); Monocytes # 0.5 K/mcL (0.0-1.3); Monocytes % 10.7 %; Red Blood Count 4.19 M/mcL (4.19-5.50); Segmented Neutrophils % 63.5 %
[2018-06-05 06:04] LABS: Neutrophils # 3.1 K/mcL (1.6-8.9); Platelet Count 66 K/mcL (140-400)
[2018-06-05 06:06] LABS: Platelet Estimate Decreased (Normal)
[2018-06-05] MEDS: Furosemide 20 MG/2 ML VIAL IVP SCH ×2 (08:24→17:13)
[2018-06-05] MEDS: Apixaban 2.5 MG TABLET PO SCH ×2 (08:24→20:27)
[2018-06-05] MEDS: Multivit/Ca/Min/Fe/FA 1 TAB TABLET PO SCH (08:24)
[2018-06-05] MEDS: SACUBITRIL/VALSARTAN 24/26 MG TABLET PO SCH ×2 (09:29→20:27)
[2018-06-05 11:57] LABS: Calcium 9.1 mg/dL (8.6-10.3); Magnesium 2.2 mg/dL (1.6-2.6); Potassium 3.3 mEq/L (3.5-5.1)
--- NOTE | 2018-06-05 12:45 | Internal Med Progress Note ---
Hospitalist Progress Note - Encounter Date of Encounter: 06/05/18 Time of Encounter: 09:30 - Subjective Interval History: Mr. Carbajal is 88 y/o M with known PMH of ischemic cardiomyopathy (CABG/systolic heart failure with AICD), Systolic CHF, atrial fibrillation on Eliquis for anti coag, hypertension and hyperlipidemia pt presented to the ER due to shortness of breath and b/l LE edema. He was admitted in the hospital and started him on IV lasix. Pt stated he is feeling better today. Still has moderate SOB and YU. He is currently on 2 lit O2. - Exam Vitals: Temp Pulse Resp BP Pulse Ox 97.4 F L 110 14 135/67 95 06/05/18 11:29 06/05/18 11:29 06/05/18 11:29 06/05/18 11:29 06/05/18 11:29 Exam: Gen: Alert, awake, Oriented to time,place and person Chest: Diminished breath sounds B/L, mild wheezing, No crackles, No rales Heart: S1S2+ RRR, No murmurs Abd: Soft, NT, BS +, No organomegaly Ext: Trace edema, pulses are palpable, No calf tenderness Neuro : Benign findings Skin: No rash. - Assessment and Plan (1) Acute on chronic systolic (congestive) heart failure Current Visit: Yes Status: Acute Assessment and Plan: Improving slowly still having significant pedal edema and SOB Still on 2 lit o2 try to wean him off the O2 as he tolerates Cont IV Lasix Resumed all other home meds -Coreg, Lasix, Entresto (2) CAD (coronary artery disease) Current Visit: No Status: Chronic Assessment and Plan: stable no cp resumed all home meds (3) Anemia Current Visit: Yes Status: Chronic Assessment and Plan: Hemoglobin on admission 10.7 which is at baseline. Will continue to monitor (4) CKD (chronic kidney disease) stage 3, GFR 30-59 ml/min Current Visit: Yes Status: Acute Assessment and Plan: Close to baseline cont close monitoring (5) HTN (hypertension) Current Visit: No Status: Chronic Assessment and Plan: stable BP with current regimen Continue home medications (6) Paroxysmal A-fib Current Visit: No Status: Acute Assessment and Plan: Rate controlled with BB Continue oral anticoagulation with Eliquis (7) Hypothyroid Current Visit: Yes Status: Acute Assessment and Plan: Continue home medications (8) Thrombocytopenia Current Visit: Yes Status: Acute Assessment and Plan: Patient with low platelets over the past 6 months Will continue to monitor (9) DVT prophylaxis Current Visit: Yes Status: Acute Assessment and Plan: continue home dose of Eliquis - Time Spent with Patient Total time spent is greater than 50% in coordination of care (as documented) at patient's floor/unit and/or counseling patient: Internal Medicine: Result - Labs CBC & Chem 7: 06/05/18 05:19 06/05/18 10:39 Labs: Short CBC 06/04/18 06/05/18 Range/Units 12:23 05:19 WBC 4.7 4.8 (4.3-11.1) K/mcL Hgb 10.7 L 10.6 L (12.9-16.9) g/dL Hct 35.6 L 34.2 L (37.5-50.1) % Plt Count 74 L 66 L (140-400) K/mcL Neutrophils # 3.2 3.1 (1.6-8.9) K/mcL BMP 06/04/18 06/05/18 12:23 10:39 Sodium 138 138 Potassium 4.4 3.3 L Chloride 104 104 Carbon Dioxide 24 28 BUN 31 H 29 H Creatinine 1.66 H 1.73 H Glucose 102 89 Calcium 9.3 9.1 Cardiac Enzymes 06/04/18 06/04/18 06/04/18 Range/Units 12:23 17:32 22:59 Troponin I < 0.03 0.03 < 0.03 (< 0.04) ng/mL 06/05/18 Range/Units 05:19 Troponin I < 0.03 (< 0.04) ng/mL Consult Discharge Plan - Plan Referrals: Isaias Welsh MD [Primary Care Provider] - (2) CAD (coronary artery disease) Qualifiers: Coronary Disease-Associated Artery/Lesion type: [place] artery Qualified Code(s): I25.10 - Atherosclerotic heart disease of [place] coronary artery without angina pectoris (3) Anemia Qualifiers: Anemia type: unspecified type Qualified Code(s): D64.9 - Anemia, unspecified (5) HTN (hypertension) Qualifiers: Hypertension type: essential hypertension Qualified Code(s): I10 - Essential (primary) hypertension (7) Hypothyroid Qualifiers: Hypothyroidism type: unspecified Qualified Code(s): E03.9 - Hypothyroidism, unspecified
--- NOTE | 2018-06-05 16:17 | Electrocardiograph Report ---
[facility] Test Date: 2018-06-04 Pat Name: Jamison Carbajal Department: [id number] Room: 3B35 Gender: M Digital Assistant: : [id number] Requested By: Mj Gallagher Order Number: [id number] Reading MD: Ariel Steele Measurements Intervals [place] Rate: 61 P: 0 LA: 63 QRS: -85 QRSD: 206 T: 104 QT: 513 QTc: 517 Interpretive Statements A-V dual-paced rhythm with some inhibition No further analysis attempted due to paced rhythm Electronically Signed On 06-05-2018 16:15:36 EDT by Ariel Steele
[2018-06-05] MEDS: Ascorbic Acid 500 MG TABLET PO SCH (17:13)
[2018-06-05] MEDS: Cholecalciferol (D-3) 1,000 UNIT TABLET PO SCH (17:13)
[2018-06-05] MEDS: SACUBITRIL/VALSARTAN 49/51 MG TABLET PO SCH (20:45)
[2018-06-06 05:34] LABS: Calcium 9.2 mg/dL (8.6-10.3); Magnesium 2.1 mg/dL (1.6-2.6); Potassium 3.4 mEq/L (3.5-5.1)
[2018-06-06] MEDS: Apixaban 2.5 MG TABLET PO SCH (08:21)
[2018-06-06] MEDS: Furosemide 20 MG/2 ML VIAL IVP SCH (08:21)
[2018-06-06] MEDS: SACUBITRIL/VALSARTAN 24/26 MG TABLET PO SCH (08:21)
[2018-06-06] MEDS: Multivit/Ca/Min/Fe/FA 1 TAB TABLET PO SCH (08:21)
--- NOTE | 2018-06-06 10:22 | Discharge Summary ---
- NOTES TO OUTPATIENT PROVIDER Notes to Outpatient Provider: f/u with PCP in one week. f/u with Cardiology in 1-2 weeks. Please check daily weights, if you gain more than 2 pounds take extra dose of Lasix and call your PCP / Cardiology. Date of Encounter: 06/06/18 Time of Encounter: 10:20 - Discharge Diagnosis (1) Acute on chronic systolic (congestive) heart failure Priority: Primary Status: Acute (2) CAD (coronary artery disease) Priority: Secondary Status: Chronic Qualifiers: Coronary Disease-Associated Artery/Lesion type: [place] artery Qualified Code(s): I25.10 - Atherosclerotic heart disease of [place] coronary artery without angina pectoris (3) Anemia Priority: Secondary Status: Chronic Qualifiers: Anemia type: unspecified type Qualified Code(s): D64.9 - Anemia, unspecified (4) CKD (chronic kidney disease) stage 3, GFR 30-59 ml/min Priority: Secondary Status: Acute (5) HTN (hypertension) Priority: Secondary Status: Chronic Qualifiers: Hypertension type: essential hypertension Qualified Code(s): I10 - Essential (primary) hypertension (6) Paroxysmal A-fib Priority: Secondary Status: Acute (7) Hypothyroid Priority: Secondary Status: Acute Qualifiers: Hypothyroidism type: unspecified Qualified Code(s): E03.9 - Hypothyroidism, unspecified (8) Thrombocytopenia Priority: Secondary Status: Acute (9) DVT prophylaxis Priority: Secondary Status: Acute Hospital course: Mr. Carbajal is 88 y/o M with known PMH of ischemic cardiomyopathy (CABG/systolic heart failure with AICD), Systolic CHF, atrial fibrillation on Eliquis for anti coag, hypertension and hyperlipidemia pt presented to the ER due to shortness of breath and b/l LE edema. He was admitted in the hospital and started him on IV lasix. Pt stated he is feeling better today. He is breathing comfortably on room air. Will discharge him home in a stable condition today. Will do ambulating pulse oxy study before he get d/c home. - Time Spent with Patient Total time spent providing and/or coordinating discharge services: - Discharge Medications Prescriptions: Continued Multivit-Min/FA/Lycopen/Lutein [A Thru Z Select Multivit Tab] 1 tab PO DAILY Levothyroxine Sodium [Levoxyl] 75 mcg PO QAM Sacubitril/Valsartan 49/51 mg [Entresto 49 mg-51 mg Tablet] 0.5 tab PO BID Carvedilol [Coreg] 25 mg PO BID Furosemide [Lasix] 20 mg PO BID Apixaban [Eliquis] 2.5 mg PO BID Omeprazole [PriLOSEC] 20 mg PO BID Ascorbate Calcium [Vitamin C] 500 mg PO QPM Ferrous Sulfate 325 mg PO QPM Cholecalciferol (D-3) [Vitamin D] 1,000 units PO QPM Home Medications: Levothyroxine Sodium [Levoxyl] 75 mcg PO QAM 11/07/16 [History] Multivit-Min/FA/Lycopen/Lutein [A Thru Z Select Multivit Tab] 1 tab PO DAILY 11/07/16 [History] Apixaban [Eliquis] 2.5 mg PO BID 01/02/18 [History] Carvedilol [Coreg] 25 mg PO BID 01/02/18 [History] Furosemide [Lasix] 20 mg PO BID 01/02/18 [History] Omeprazole [PriLOSEC] 20 mg PO BID 01/02/18 [History] Sacubitril/Valsartan 49/51 mg [Entresto 49 mg-51 mg Tablet] 0.5 tab PO BID 01/02/18 [History] Ascorbate Calcium [Vitamin C] 500 mg PO QPM 06/04/18 [History] Cholecalciferol (D-3) [Vitamin D] 1,000 units PO QPM 06/04/18 [History] Ferrous Sulfate 325 mg PO QPM 06/04/18 [History] Allergies/Adverse Reactions: Allergy/AdvReac Type Severity Reaction Status Date / Time clonidine Allergy See Verified 06/04/18 19:53 Comments Erythromycin Base Allergy See Verified 06/04/18 19:53 [From Erythrocin] Comments Iodinated Contrast- Oral and Allergy See Verified 06/04/18 19:53 IV Dye Comments [Iodinated Contrast Media - IV Dye] Neomycin Allergy See Verified 06/04/18 19:53 Comments povidone-iodine Allergy See Verified 06/04/18 19:53 [From Betadine] Comments Sulfa (Sulfonamide Allergy See Verified 06/04/18 19:53 Antibiotics) Comments sulfamethoxazole Allergy See Verified 06/04/18 19:53 [From Bactrim] Comments trimethoprim [From Bactrim] Allergy See Verified 06/04/18 19:53 Comments Date of admission: 06/04/18 15:16 Primary care physician: Isaias Welsh MD Consults: 06/05/18 14:56 Consult to Nurse Navigator [CONS] Routine Comment: CHF - Constitutional Vitals: Temp Pulse Resp BP Pulse Ox 97.3 F L 60 16 132/76 96 06/06/18 07:16 06/06/18 07:16 06/06/18 07:16 06/06/18 07:16 06/06/18 08:29 General appearance: Present: A&O X 3, no acute distress, answers questions appropriately Exam: Gen: Alert, awake, Oriented to time,place and person Chest: Diminished breath sounds B/L, mild wheezing, No crackles, No rales Heart: S1S2+ RRR, No murmurs Abd: Soft, NT, BS +, No organomegaly Ext: Trace edema, pulses are palpable, No calf tenderness Neuro : Benign findings Skin: No rash. - Patient Status Disposition: Home, Self-Care Condition: Good Overall status at discharge: patient is back to baseline - Discharge Instructions Follow Up With: Josse Landers [Partnered Physician] - 06/13/18 1:55 pm - Diet and Activity Activity: increase activity as tolerated Diet: low salt diet
[2018-06-06 11:48] VITALS: BP 123/57
== END 2018-06-06 12:42 | disposition home or self-care (01) ==
LOC: EMEROOARM 10:41 → 3BNU 10:41 → SUATTDRO 15:16 → 3BNU 15:48
PROVIDERS: ADMIT Student in an Organized Health Care Education/Training Program; ATTEND Family Medicine

== ENCOUNTER 2018-08-30 17:01 | Inpatient (IN) ==
[2018-08-30 18:09] LABS: Basophils # 0.1 K/mcL (0.0-0.2); Basophils % 0.8 %; Eosinophils # 0.2 K/mcL (0.0-0.6); Eosinophils % 2.4 %; Hematocrit 40.8 % (37.5-50.1); Immature Granulocytes % 0.2 % (0-4); Lymphocytes # 1.6 K/mcL (0.6-4.6); Lymphocytes % 24.8 %; Mean Corpuscular HGB Conc 31.9 g/dL (31.6-35.5); Mean Corpuscular Hemoglobin 29.3 pg (28.0-33.3); Mean Corpuscular Volume 91.9 fL (83.0-100.0); Mean Platelet Volume 11.6 fL (9.4-12.4); Monocytes # 0.6 K/mcL (0.0-1.3); Monocytes % 8.8 %; Neutrophils # 4.2 K/mcL (1.6-8.9); Platelet Count 133 K/mcL (140-400); Red Blood Count 4.44 M/mcL (4.19-5.50); Red Cell Distribution Width 19.9 % (11.5-14.5); White Blood Count 6.6 K/mcL (4.3-11.1)
[2018-08-30 18:20] LABS: Calcium 9.1 mg/dL (8.6-10.3); Potassium 4.4 mEq/L (3.5-5.1); Troponin I 0.03 ng/mL (< 0.04)
[2018-08-30] MEDS ORDERED: 0.9 % Sodium Chloride 1,000 ML IVC SCH (23:45)
[2018-08-30] MEDS ORDERED: Naloxone 0.4 MG/ML INJ IVP PRN (23:59)
[2018-08-30] MEDS ORDERED: Acetaminophen 325 MG TABLET PO PRN (23:59)
[2018-08-30] MEDS ORDERED: Ondansetron 4 MG/2 ML VIAL IVP PRN (23:59)
[2018-08-31 00:34] LABS: Basophils % 0.6 %; Eosinophils # 0.1 K/mcL (0.0-0.6); Hematocrit 43.6 % (37.5-50.1); Hemoglobin 14.1 g/dL (12.9-16.9); Immature Granulocytes % 0.1 % (0-4); Lymphocytes # 1.7 K/mcL (0.6-4.6); Lymphocytes % 24.7 %; Mean Corpuscular HGB Conc 32.3 g/dL (31.6-35.5); Mean Corpuscular Hemoglobin 30.2 pg (28.0-33.3); Mean Corpuscular Volume 93.4 fL (83.0-100.0); Mean Platelet Volume 10.7 fL (9.4-12.4); Monocytes # 0.6 K/mcL (0.0-1.3); Monocytes % 9.4 %; Neutrophils # 4.4 K/mcL (1.6-8.9); Platelet Count 120 K/mcL (140-400); Red Blood Count 4.67 M/mcL (4.19-5.50); Red Cell Distribution Width 19.9 % (11.5-14.5); Segmented Neutrophils % 64.2 %; White Blood Count 6.8 K/mcL (4.3-11.1)
[2018-08-31 00:44] LABS: INR 1.8; Prothrombin Time 19.9 Seconds (9.4-12.1)
[2018-08-31 00:46] LABS: Activated Partial Thrombo Time 40.9 Seconds (26.0-36.0)
[2018-08-31 00:53] LABS: Albumin/Globulin Ratio 1.5 (1.1-2.2); Bilirubin,Total 1.3 mg/dL (0.3-1.0); Calcium 9.4 mg/dL (8.6-10.3); Chol/HDL Ratio 5.3 (0-4.9); Globulin 2.6 g/dL (2.4-3.5); Magnesium 2.3 mg/dL (1.6-2.6); Potassium 4.3 mEq/L (3.5-5.1); Total Protein 6.6 g/dL (6.4-8.9)
[2018-08-31 09:39] LABS: Bilirubin,Urine Negative (Negative); Blood,Urine Small (Negative); Clarity,Urine Cloudy (Clear); Color,Urine Yellow (Yellow); Glucose,Urine (UA) Normal (Normal); Ketones,Urine Negative (Negative); Leukocyte Esterase,Urine Large (Negative); Nitrite,Urine Negative (Negative); PH,Urine 5.5 pH Units (5.0-8.0); Protein,Urine 30 mg/dL (Neg-Trace); Specific Gravity,Urine 1.019 (1.010-1.025); Urobilinogen,Urine Normal (Normal)
[2018-08-31 09:42] LABS: Bacteria,Urine Many per hpf (None-Few); Squamous Epithelial Cell,Urine Many per lpf (None-Few); WBC,Urine TNTC per hpf (0-3)
[2018-08-31] MEDS ORDERED: Furosemide 20 MG TABLET PO PRN (12:41)
[2018-08-31] MEDS ORDERED: Perflutren Lipid Microsphere 1.3 ML in 0.9 % Sodium Chloride 8.7 ML IVP ONE (15:07)
[2018-08-31] MEDS: Furosemide 40 MG/4 ML VIAL IVP SCH (17:25)
[2018-08-31] MEDS: Ascorbic Acid 500 MG TABLET PO SCH (17:25)
[2018-08-31] MEDS: carvediloL 25 MG TABLET PO SCH (17:25)
[2018-08-31] MEDS: Sacubitril/Valsartan 97/103 MG 1 TAB TABLET PO SCH (21:27)
[2018-08-31] MEDS: Apixaban 2.5 MG TABLET PO SCH (21:28)
[2018-08-31] MEDS ORDERED: Melatonin 3 MG TABLET PO PRN (21:36)
[2018-09-01] MEDS: Furosemide 40 MG/4 ML VIAL IVP SCH (08:21)
[2018-09-01] MEDS: Apixaban 2.5 MG TABLET PO SCH ×2 (08:22→20:48)
[2018-09-01] MEDS: carvediloL 25 MG TABLET PO SCH ×2 (08:22→15:21)
[2018-09-01] MEDS: Cholecalciferol (D-3) 1,000 UNIT (25MCG) TABLET PO SCH (08:22)
[2018-09-01] MEDS: Sacubitril/Valsartan 97/103 MG 1 TAB TABLET PO SCH ×2 (08:22→20:48)
[2018-09-01] MEDS: cefTRIAXone 2,000 MG in Water for inj. (sterile) 20 ML IVP SCH (15:21)
[2018-09-01] MEDS: Ascorbic Acid 500 MG TABLET PO SCH (15:21)
[2018-09-02 05:01] LABS: Hematocrit 39.8 % (37.5-50.1); Mean Corpuscular HGB Conc 32.7 g/dL (31.6-35.5); Mean Corpuscular Hemoglobin 29.8 pg (28.0-33.3); Mean Corpuscular Volume 91.3 fL (83.0-100.0); Platelet Count 116 K/mcL (140-400); Red Blood Count 4.36 M/mcL (4.19-5.50); Red Cell Distribution Width 19.5 % (11.5-14.5); White Blood Count 8.8 K/mcL (4.3-11.1)
[2018-09-02 05:20] LABS: Potassium 3.7 mEq/L (3.5-5.1)
[2018-09-02] MEDS: Sacubitril/Valsartan 97/103 MG 1 TAB TABLET PO SCH ×2 (08:03→19:48)
[2018-09-02] MEDS: Apixaban 2.5 MG TABLET PO SCH ×2 (08:03→19:48)
[2018-09-02] MEDS: Cholecalciferol (D-3) 1,000 UNIT (25MCG) TABLET PO SCH (08:03)
[2018-09-02] MEDS: carvediloL 25 MG TABLET PO SCH ×2 (08:03→15:27)
[2018-09-02] MEDS: Furosemide 40 MG/4 ML VIAL IVP SCH (08:03)
[2018-09-02] MEDS: cefTRIAXone 2,000 MG in Water for inj. (sterile) 20 ML IVP SCH (15:27)
[2018-09-02] MEDS: Ascorbic Acid 500 MG TABLET PO SCH (15:27)
[2018-09-03 07:27] LABS: Basophils % 0.5 %; Eosinophils # 0.2 K/mcL (0.0-0.6); Eosinophils % 2.9 %; Hematocrit 42.2 % (37.5-50.1); Hemoglobin 13.6 g/dL (12.9-16.9); Immature Granulocytes % 0.4 % (0-4); Lymphocytes # 1.7 K/mcL (0.6-4.6); Lymphocytes % 20.8 %; Mean Corpuscular HGB Conc 32.2 g/dL (31.6-35.5); Mean Corpuscular Hemoglobin 29.4 pg (28.0-33.3); Mean Corpuscular Volume 91.1 fL (83.0-100.0); Mean Platelet Volume 10.6 fL (9.4-12.4); Monocytes # 0.7 K/mcL (0.0-1.3); Monocytes % 8.1 %; Neutrophils # 5.4 K/mcL (1.6-8.9); Platelet Count 136 K/mcL (140-400); Red Blood Count 4.63 M/mcL (4.19-5.50); Red Cell Distribution Width 19.9 % (11.5-14.5); Segmented Neutrophils % 67.3 %
[2018-09-03 07:39] VITALS: BP 146/68
[2018-09-03 07:47] LABS: Potassium 3.5 mEq/L (3.5-5.1)
[2018-09-03] MEDS ORDERED: Furosemide 20 MG TABLET PO SCH (09:00)
[2018-09-03] MEDS: carvediloL 25 MG TABLET PO SCH (09:10)
[2018-09-03] MEDS: Cholecalciferol (D-3) 1,000 UNIT (25MCG) TABLET PO SCH (09:11)
[2018-09-03] MEDS: Sacubitril/Valsartan 97/103 MG 1 TAB TABLET PO SCH (09:11)
[2018-09-03] MEDS: Apixaban 2.5 MG TABLET PO SCH (09:13)
== END 2018-09-03 12:33 | disposition home or self-care (01) | DRG 312 ==
LOC: 3BNU 17:01 → EMEROOARM 17:01 → 3BNU 21:45
PROVIDERS: ADMIT Family Medicine; ATTEND Family Medicine

== ENCOUNTER 2018-11-29 14:10 | Inpatient (IN) ==
[2018-11-29] MEDS: Furosemide 40 MG/4 ML VIAL IVP ONE (14:33)
[2018-11-29 14:50] LABS: Basophils % 0.3 %; Eosinophils # 0.1 K/mcL (0.0-0.6); Eosinophils % 1.2 %; Hemoglobin 16.1 g/dL (12.9-16.9); Immature Granulocytes % 0.3 % (0-4); Lymphocytes # 0.9 K/mcL (0.6-4.6); Lymphocytes % 15.3 %; Mean Corpuscular HGB Conc 32.9 g/dL (31.6-35.5); Mean Corpuscular Volume 97.4 fL (83.0-100.0); Mean Platelet Volume 12.2 fL (9.4-12.4); Monocytes % 9.4 %; Red Blood Count 5.03 M/mcL (4.19-5.50); Segmented Neutrophils % 73.5 %; White Blood Count 5.8 K/mcL (4.3-11.1)
[2018-11-29 14:52] LABS: Monocytes # 0.6 K/mcL (0.0-1.3); Neutrophils # 4.3 K/mcL (1.6-8.9); Platelet Count 66 K/mcL (140-400)
[2018-11-29] MEDS ORDERED: Isovue-370 500 ML BOTTLE IVP ONE (15:04)
[2018-11-29] MEDS ORDERED: Ondansetron 4 MG/2 ML VIAL IVP ONE (15:05)
[2018-11-29 15:15] LABS: Calcium 9.1 mg/dL (8.6-10.3); Potassium 4.8 mEq/L (3.5-5.1); Troponin I 0.03 ng/mL (< 0.04)
[2018-11-29] MEDS: Nitroglycerin 25 MG/250 ML INFUS..BTL IVC SCH ×3 (15:32→23:18)
[2018-11-29] MEDS ORDERED: Ondansetron 4 MG/2 ML VIAL IVP PRN (17:50)
[2018-11-29] MEDS ORDERED: Acetaminophen 325 MG TABLET PO PRN (17:50)
[2018-11-29] MEDS ORDERED: Naloxone 0.4 MG/ML INJ IVP PRN (17:50)
[2018-11-29] MEDS: Furosemide 40 MG/4 ML VIAL IVP SCH (21:01)
[2018-11-29] MEDS: Ascorbic Acid 500 MG TABLET PO SCH (21:01)
[2018-11-29] MEDS: Sacubitril/Valsartan 97/103 MG 1 TAB TABLET PO SCH (21:31)
[2018-11-29] MEDS: *HR* Heparin 5,000 UNIT/ML VIAL SQ SCH (23:17)
[2018-11-30 03:48] LABS: Basophils % 0.5 %; Immature Granulocytes % 0.2 % (0-4); Mean Corpuscular HGB Conc 30.9 g/dL (31.6-35.5); Mean Corpuscular Volume 100.9 fL (83.0-100.0)
[2018-11-30 03:49] LABS: Eosinophils # 0.2 K/mcL (0.0-0.6); Eosinophils % 2.9 %; Hematocrit 45.3 % (37.5-50.1); Immature Platelets 8.7 % (1.1-6.1); Lymphocytes # 0.8 K/mcL (0.6-4.6); Mean Corpuscular Hemoglobin 31.2 pg (28.0-33.3); Mean Platelet Volume 12.1 fL (9.4-12.4); Monocytes # 0.4 K/mcL (0.0-1.3); Monocytes % 7.7 %; Red Blood Count 4.49 M/mcL (4.19-5.50); Red Cell Distribution Width 16.5 % (11.5-14.5); Segmented Neutrophils % 73.7 %; White Blood Count 5.5 K/mcL (4.3-11.1)
[2018-11-30 03:54] LABS: Neutrophils # 4.1 K/mcL (1.6-8.9); Platelet Count 68 K/mcL (140-400)
[2018-11-30 04:04] LABS: BUN/Creatinine Ratio 28 (6-26); Blood Urea Nitrogen 37 mg/dL (8-23); Calcium 8.6 mg/dL (8.6-10.3); Carbon Dioxide 33 mEq/L (23-29); Chloride 102 mEq/L (98-107); Glucose 86 mg/dL (70-105); Magnesium 2.3 mg/dL (1.6-2.6); Osmolality,Calculated 298 (280-300); Potassium 3.9 mEq/L (3.5-5.1); Sodium 140 mEq/L (136-145); eGFR For African Americans > 60 (> 60); eGFR For Non-African Americans 52 (> 60)
[2018-11-30 04:18] LABS: Thyroid Stimulating Hormone 5.409 mcIU/mL (0.340-5.600)
[2018-11-30] MEDS: *HR* Heparin 5,000 UNIT/ML VIAL SQ SCH ×3 (09:33→23:46)
[2018-11-30] MEDS: Furosemide 40 MG/4 ML VIAL IVP SCH ×3 (09:33→21:47)
[2018-11-30] MEDS: Sacubitril/Valsartan 97/103 MG 1 TAB TABLET PO SCH ×2 (10:57→21:40)
[2018-11-30] MEDS: Cholecalciferol (D-3) 1,000 UNIT (25MCG) TABLET PO SCH (10:57)
[2018-11-30] MEDS: Multivit/Ca/Min/Fe/FA 1 TAB TABLET PO SCH (10:57)
[2018-11-30] MEDS: Ascorbic Acid 500 MG TABLET PO SCH (17:00)
[2018-11-30] MEDS: Furosemide 40 MG/4 ML VIAL IVP ONE (21:41)
[2018-12-01 04:47] LABS: Basophils % 0.6 %
[2018-12-01 04:49] LABS: Eosinophils # 0.2 K/mcL (0.0-0.6); Eosinophils % 3.3 %; Hematocrit 48.1 % (37.5-50.1); Hemoglobin 15.4 g/dL (12.9-16.9); Immature Granulocytes % 0.4 % (0-4); Immature Platelets 9.3 % (1.1-6.1); Lymphocytes # 0.9 K/mcL (0.6-4.6); Lymphocytes % 16.1 %; Mean Corpuscular Hemoglobin 31.5 pg (28.0-33.3); Mean Corpuscular Volume 98.4 fL (83.0-100.0); Mean Platelet Volume 12.7 fL (9.4-12.4); Monocytes # 0.5 K/mcL (0.0-1.3); Monocytes % 8.7 %; Red Blood Count 4.89 M/mcL (4.19-5.50); Red Cell Distribution Width 16.3 % (11.5-14.5); Segmented Neutrophils % 70.9 %; White Blood Count 5.4 K/mcL (4.3-11.1)
[2018-12-01 05:01] LABS: Neutrophils # 3.8 K/mcL (1.6-8.9); Platelet Count 61 K/mcL (140-400)
[2018-12-01 05:09] LABS: Calcium 9.2 mg/dL (8.6-10.3); Magnesium 2.4 mg/dL (1.6-2.6); Potassium 3.7 mEq/L (3.5-5.1)
[2018-12-01] MEDS ORDERED: Cholecalciferol (D-3) 1,000 UNIT (25MCG) TABLET PO SCH (18:00)
[2018-12-01] MEDS: Spironolactone 25 MG TABLET PO SCH (20:02)
[2018-12-01] MEDS: *HR* Heparin 5,000 UNIT/ML VIAL SQ SCH ×2 (20:02→20:08)
[2018-12-01] MEDS: Lactobacillus 1 EACH CAP.SPRINK PO SCH (20:03)
[2018-12-01] MEDS: Furosemide 40 MG TABLET PO SCH (20:03)
[2018-12-01] MEDS: Sacubitril/Valsartan 97/103 MG 1 TAB TABLET PO SCH ×2 (20:03→20:13)
[2018-12-01] MEDS: Cholecalciferol (D-3) 1,000 UNIT (25MCG) TABLET PO SCH (20:07)
[2018-12-01] MEDS: Multivit/Ca/Min/Fe/FA 1 TAB TABLET PO SCH (20:07)
[2018-12-01] MEDS: Cyanocobalamin (B-12) 1,000 MCG TABLET PO SCH (20:07)
[2018-12-01] MEDS: Ascorbic Acid 500 MG TABLET PO SCH ×2 (20:08→20:09)
[2018-12-02] MEDS ORDERED: Phenylephrine Nasal 0.5% 15 ML BOTTLE NS ONE (03:47)
[2018-12-02] MEDS ORDERED: Lidocaine Viscous Oral Soln 15 ML SOLUTION MM PRN (03:48)
[2018-12-02 03:59] LABS: Hematocrit 48.8 % (37.5-50.1); Hemoglobin 15.1 g/dL (12.9-16.9)
[2018-12-02 05:18] LABS: INR 1.2; Prothrombin Time 13.4 Seconds (9.4-12.1)
[2018-12-02 05:32] LABS: BUN/Creatinine Ratio 30 (6-26); Blood Urea Nitrogen 37 mg/dL (8-23); Calcium 9.3 mg/dL (8.6-10.3); Carbon Dioxide 39 mEq/L (23-29); Chloride 100 mEq/L (98-107); Glucose 106 mg/dL (70-105); Osmolality,Calculated 297 (280-300); Sodium 139 mEq/L (136-145); eGFR For African Americans > 60 (> 60); eGFR For Non-African Americans 56 (> 60)
[2018-12-02 06:17] LABS: Hematocrit 49.4 % (37.5-50.1); Mean Corpuscular HGB Conc 32.4 g/dL (31.6-35.5); Mean Corpuscular Hemoglobin 31.8 pg (28.0-33.3); Mean Corpuscular Volume 98.2 fL (83.0-100.0); Red Blood Count 5.03 M/mcL (4.19-5.50)
[2018-12-02 06:19] LABS: Immature Platelets 7.5 % (1.1-6.1); Mean Platelet Volume 12.2 fL (9.4-12.4); Red Cell Distribution Width 16.3 % (11.5-14.5); White Blood Count 5.9 K/mcL (4.3-11.1)
[2018-12-02] MEDS: Spironolactone 25 MG TABLET PO SCH (09:14)
[2018-12-02] MEDS: Furosemide 40 MG TABLET PO SCH (09:14)
[2018-12-02] MEDS: Cholecalciferol (D-3) 1,000 UNIT (25MCG) TABLET PO SCH (09:15)
[2018-12-02] MEDS: Sacubitril/Valsartan 97/103 MG 1 TAB TABLET PO SCH ×2 (09:17→21:50)
[2018-12-02] MEDS: Multivit/Ca/Min/Fe/FA 1 TAB TABLET PO SCH (09:18)
[2018-12-02] MEDS: Lactobacillus 1 EACH CAP.SPRINK PO SCH (09:18)
[2018-12-02] MEDS ORDERED: Amoxicillin/Clavulanate 500 MG TABLET PO SCH (17:00)
[2018-12-02] MEDS: Cyanocobalamin (B-12) 1,000 MCG TABLET PO SCH (17:33)
[2018-12-02] MEDS: Saline Nasal Spray 44 ML BOTTLE NS SCH ×2 (17:33→21:49)
[2018-12-02] MEDS: Ascorbic Acid 500 MG TABLET PO SCH (17:33)
[2018-12-02] MEDS: cephALEXin 500 MG CAPSULE PO SCH (21:50)
[2018-12-02] MEDS ORDERED: Melatonin 3 MG TABLET PO PRN (23:36)
[2018-12-03 04:01] LABS: Immature Granulocytes % 0.2 % (0-4); Mean Corpuscular Hemoglobin 31.4 pg (28.0-33.3); Red Cell Distribution Width 16.5 % (11.5-14.5)
[2018-12-03 04:03] LABS: Basophils % 0.5 %; Eosinophils # 0.2 K/mcL (0.0-0.6); Eosinophils % 2.8 %; Hematocrit 44.9 % (37.5-50.1); Hemoglobin 14.5 g/dL (12.9-16.9); Immature Platelets 6.7 % (1.1-6.1); Lymphocytes # 0.8 K/mcL (0.6-4.6); Lymphocytes % 14.2 %; Mean Corpuscular HGB Conc 32.3 g/dL (31.6-35.5); Mean Corpuscular Volume 97.2 fL (83.0-100.0); Mean Platelet Volume 11.6 fL (9.4-12.4); Monocytes # 0.4 K/mcL (0.0-1.3); Monocytes % 7.2 %; Neutrophils # 4.3 K/mcL (1.6-8.9); Red Blood Count 4.62 M/mcL (4.19-5.50); Segmented Neutrophils % 75.1 %; White Blood Count 5.7 K/mcL (4.3-11.1)
[2018-12-03 04:07] LABS: Platelet Count 78 K/mcL (140-400)
[2018-12-03 04:20] LABS: BUN/Creatinine Ratio 38 (6-26); Blood Urea Nitrogen 42 mg/dL (8-23); Carbon Dioxide 39 mEq/L (23-29); Chloride 100 mEq/L (98-107); Glucose 116 mg/dL (70-105); Magnesium 2.4 mg/dL (1.6-2.6); Osmolality,Calculated 305 (280-300); Potassium 4.1 mEq/L (3.5-5.1); Sodium 142 mEq/L (136-145); eGFR For African Americans > 60 (> 60); eGFR For Non-African Americans > 60 (> 60)
[2018-12-03] MEDS: Cholecalciferol (D-3) 1,000 UNIT (25MCG) TABLET PO SCH (09:17)
[2018-12-03] MEDS: Sacubitril/Valsartan 97/103 MG 1 TAB TABLET PO SCH (09:18)
[2018-12-03] MEDS: Furosemide 40 MG TABLET PO SCH (09:18)
[2018-12-03] MEDS: Multivit/Ca/Min/Fe/FA 1 TAB TABLET PO SCH (09:18)
[2018-12-03] MEDS: cephALEXin 500 MG CAPSULE PO SCH ×2 (09:18→20:43)
[2018-12-03] MEDS: Lactobacillus 1 EACH CAP.SPRINK PO SCH (09:18)
[2018-12-03] MEDS: Spironolactone 25 MG TABLET PO SCH (09:18)
[2018-12-03] MEDS: Saline Nasal Spray 44 ML BOTTLE NS SCH ×3 (09:25→20:43)
[2018-12-03] MEDS: Ascorbic Acid 500 MG TABLET PO SCH (19:01)
[2018-12-03] MEDS: Cyanocobalamin (B-12) 1,000 MCG TABLET PO SCH (19:01)
[2018-12-03] MEDS: Sacubitril/Valsartan 49/51 MG 1 TABLET PO SCH (20:43)
[2018-12-04 04:46] LABS: Basophils % 0.5 %; Red Cell Distribution Width 16.8 % (11.5-14.5)
[2018-12-04 04:48] LABS: Eosinophils # 0.2 K/mcL (0.0-0.6); Hematocrit 44.3 % (37.5-50.1); Hemoglobin 14.4 g/dL (12.9-16.9); Immature Granulocytes % 0.5 % (0-4); Immature Platelets 7.3 % (1.1-6.1); Lymphocytes # 0.9 K/mcL (0.6-4.6); Lymphocytes % 15.7 %; Mean Corpuscular HGB Conc 32.5 g/dL (31.6-35.5); Mean Corpuscular Hemoglobin 31.2 pg (28.0-33.3); Mean Corpuscular Volume 96.1 fL (83.0-100.0); Mean Platelet Volume 12.3 fL (9.4-12.4); Monocytes # 0.5 K/mcL (0.0-1.3); Monocytes % 7.7 %; Neutrophils # 4.4 K/mcL (1.6-8.9); Red Blood Count 4.61 M/mcL (4.19-5.50); Segmented Neutrophils % 72.6 %
[2018-12-04 04:57] LABS: Platelet Count 74 K/mcL (140-400)
[2018-12-04 04:59] LABS: BUN/Creatinine Ratio 38 (6-26); Blood Urea Nitrogen 37 mg/dL (8-23); Calcium 8.7 mg/dL (8.6-10.3); Carbon Dioxide 32 mEq/L (23-29); Chloride 103 mEq/L (98-107); Glucose 94 mg/dL (70-105); Magnesium 2.4 mg/dL (1.6-2.6); Osmolality,Calculated 302 (280-300); Potassium 4.5 mEq/L (3.5-5.1); Sodium 142 mEq/L (136-145); eGFR For African Americans > 60 (> 60); eGFR For Non-African Americans > 60 (> 60)
[2018-12-04] MEDS: Multivit/Ca/Min/Fe/FA 1 TAB TABLET PO SCH (08:45)
[2018-12-04] MEDS: Furosemide 40 MG TABLET PO SCH (08:45)
[2018-12-04] MEDS: Cholecalciferol (D-3) 1,000 UNIT (25MCG) TABLET PO SCH (08:45)
[2018-12-04] MEDS: Spironolactone 25 MG TABLET PO SCH (08:46)
[2018-12-04] MEDS: cephALEXin 500 MG CAPSULE PO SCH (08:46)
[2018-12-04] MEDS: Lactobacillus 1 EACH CAP.SPRINK PO SCH (08:46)
[2018-12-04] MEDS: Sacubitril/Valsartan 49/51 MG 1 TABLET PO SCH (08:46)
[2018-12-04] MEDS: Saline Nasal Spray 44 ML BOTTLE NS SCH (08:52)
[2018-12-04 11:04] VITALS: BP 130/75
[2018-12-04] MEDS ORDERED: FLU Vac QV 19-20 (6Month+)/PF 0.5 ML SYRINGE IM ONE (15:12)
[2018-12-04] MEDS ORDERED: Saline Nasal Spray 44 ML BOTTLE NS SCH (21:00)
== END 2018-12-04 17:57 | DRG 291 ==
LOC: SUATTDRO → EMEROOARM 14:10 → CDU 17:35 → SUATTDRO 17:35 → 2NENU 18:41
PROVIDERS: ADMIT Pharmacist; ATTEND Pharmacist